=== PATIENT | female | born 1955 | race Caucasian/White ===

== ENCOUNTER → 2021-07-01 15:39 | Outpatient (CLI) | payer MEDICARE, OTHER, SELFPAY ==
[2021-07-01 16:24] LABS: Basophils # 0.1 K/mm3 (0-0.2); Basophils % 0.5 % (0.1-2.0); Eosinophils # 0.1 K/mm3 (0.0-0.4); Eosinophils % 0.5 % (0.1-12.0); Hematocrit 43.3 % (37.0-47.0); Hemoglobin 14.3 g/dL (12.2-16.2); Lymphocytes # 5.2 K/mm3 (0.7-4.5); Lymphocytes % 51.4 % (10-50); Mean Corpuscular Volume 93.8 fl (81-99); Mean Platelet Volume 8.1 fl (7.4-10.4); Monocytes # 4.8 K/mm3 (0.1-1.0); Monocytes % 47.2 % (1.7-9.3); Platelet Count 435 K/mm3 (142-424); Red Blood Count 4.61 M/mm3 (4.20-5.40); Red Cell Distribution Width 14.9 % (11.5-17.5); White Blood Count 10.2 K/mm3 (4.8-10.8)
[2021-07-01 16:25] LABS: MANUAL DIFFERENTIAL MANUAL DIFFERENTIAL (MANUAL DIFF); Neutrophils % 0.3 % (37.0-80.0)
[2021-07-01 16:42] LABS: Chloride 102 mmol/L (98-107); Potassium 4.1 mmoL/L (3.5-5.1); Sodium 142 mmol/L (136-145)
[2021-07-01 16:45] LABS: Alanine Aminotransferase 9 U/L (12-78); Albumin Level 4.3 g/dl (3.5-5.0); Albumin/Globulin Ratio 1.4 (1.1-1.8); Alkaline Phosphatase 151 U/L (38-126); Anion Gap 11.1 mEq/L (5-15); Aspartate Amino Transferase 31 U/L (14-36); Bilirubin,Total 0.3 mg/dl (0.2-1.3); Blood Urea Nitrogen 12 mg/dl (7-17); Carbon Dioxide 33 mmol/L (22.0-30.0); Estimated Glomerular Filt Rate 62 ml/min (>60); GFR (African American) 75 ML/MIN (>60); Globulin 3.1 g/dL (1.3-3.2); Total Protein,Serum 7.4 g/dl (6.3-8.2)
[2021-07-01 16:46] LABS: Calcium 9.7 mg/dl (8.4-10.2); Glucose 91 mg/dl (74-100)
[2021-07-01 18:14] LABS: Eosinophils % 1 % (0-3); Lymphocytes % 24 % (10-50); Monocytes % 18 % (2-9); Neutrophils % 57 % (42-76); Total Cells Counted 100
[2021-07-01 18:15] LABS: Platelet Estimate Normal
== END ==
PROVIDERS: Visit Provider Nurse Practitioner Family
DX: R79.89 Other specified abnormal findings of blood chemistry (principal)
CPT/HCPCS: 36415; 80053; 85007; 85025

== ENCOUNTER 2022-05-19 19:43 | Inpatient (IN) | payer MEDICARE, OTHER, SELFPAY ==
[2022-05-19] VITALS (34 sets, daily range): BP systolic 84–165; BP diastolic 44–101; PULSE 52–100; RESP 15–20; TEMP 36.4–37.1; O2SAT 94–100; BMI 21.1; BMI 19.5
--- NOTE | 2022-05-19 | IR_ITS ---
APPROVED REPORT Patient Location: Emergent Nurse First Aid: NIRMAL Alcantar RT (R) PROCEDURES Selective coronary angiogram Drug-eluting stent deployment to the proximal and mid dominant right coronary Drug-eluting stent deployment to the proximal LAD INDICATION Acute inferior lateral and anterolateral ST elevation myocardial infarction, Coronary artery disease Informed consent was obtained prior to the procedure. COMPLICATIONS NONE Estimated Blood Loss: LESS THAN 10 ML TECHNIQUE One percent lidocaine was used to anesthetize the right groin. The right femoral artery was accessed via the Seldinger technique. A 6 Nepalese sheath was placed in the right femoral artery and a JR4 guide catheter was used to cannulate the right coronary artery. Therapeutic heparin had already been administered and the ACT was 205. An additional 2000 units of heparin was administered intravenously. The guide catheter was placed on the right coronary artery followed by a Choice PT extra-support wire. A 2.5 x 15 mm resolute Davin stent was deployed at 24 vickie reducing the occlusion to 0% restoring NOMAN-3 flow. An additional 2.5 x 15 mm resolute [place] stent was then deployed at 16 vickie reducing the stenosis to 0%. The balloon was brought back between the 2 stents and deployed at 24 vickie further post dilating and measuring the 2 stents. NOMAN-3 flow was present at the end of the procedure with NOMAN 0 flow at the beginning of the procedure. Following this a 6 Nepalese JL 3.5 guide catheter was placed in the left main artery and angiography was performed. There was a calcified proximal to mid LAD lesion which was moderate to severe. Given patient's extremely small weight very small femoral artery as well as highly tortuous aorta and severely kyphotic thoracic spine with difficulty in cannulating the left main artery and right coronary artery it was decided percutaneous revascularization was most warranted in this patient. She had high risk for vascular access with future angiography as well as difficulty cannulating the telida vessels due to patient's extreme vertebral collapse and highly tortuous descending thoracic aorta. Because of this a Choice PT extra-support wire was placed into the LAD and a 2.75 x 18 mm resolute Davin stent was deployed at 18 vickie reducing the stenosis to 0%. NOMAN-3 flow was present before and after the procedure. At the end of procedure the apparatus was removed the sheath was taped into place patient was transferred to postop putting in stable ANGIOGRAPHIC RESULTS The left main artery Normal The left anterior descending artery Has proximal 20% stenoses with an eccentric calcified 70% stenosis. The circumflex artery Nondominant and has proximal 40% stenoses followed by an additional 50 to 60% stenosis in the first obtuse marginal artery with a proximal 60% and mid vessel 60 to 70% stenosis in a moderate-sized second obtuse marginal artery The right coronary artery Is dominant and initially proximally occluded. Following stenting the vessel was widely patent with excellent distal inline flow The ALBERTO ventriculogram reveals Not performed The left ventricular end-diastolic pressure Not measured IMPRESSION Acute inferior and anterolateral ST elevation myocardial infarction Successful stenting of the proximal mid right coronary artery critical disease reduced to 0% with 2 contiguous drug-eluting stents Successful stenting of the proximal to mid LAD severe disease reduced to 0% with 1 drug-eluting stent Persistent moderate to severe stenosis in the first and second obtuse marginal arteries as described above PLAN 1. Brilinta 90 twice daily plus aspirin 81 mg daily 2. OMAR inhibitor's and beta-b
--- NOTE | 2022-05-19 19:39 | ECG_ITS ---
APPROVED REPORT Exam: Resting ECG HR:44 bpm ECG Measurements Heart Rate [address] 183 P 70 QRSd 79 QRS 11 QT 465 T 121 QTc 415 Conclusion Mobitz II AV Block with 2:1 conduction POSSIBLE LEFT ATRIAL ENLARGEMENT [-0.1mV P-WAVE IN V1/V2] ST DEVIATION AND MARKED T-WAVE ABNORMALITY, CONSIDER LATERAL ISCHEMIA [-0.5+ mV T-WAVE IN I/aVL/V5/V6] ABNORMAL ECG UNCONFIRMED REPORT Electronically signed by : Esau Mejia MD 05/20/2022 12:34:06
--- NOTE | 2022-05-19 19:43 | ECG_ITS ---
APPROVED REPORT Exam: Resting ECG HR:66 bpm ECG Measurements Heart Rate 66 AXES QRSd 87 QRS 20 QT 451 T 110 QTc 464 Conclusion Mobitz II AV block- wenckebach pattern ST ELEVATION, PROBABLY EARLY REPOLARIZATION [ST ELEVATION WITH NORMALLY INFLECTED T-WAVE] ST DEVIATION AND MODERATE T-WAVE ABNORMALITY, CONSIDER LATERAL ISCHEMIA [-0.1+ mV T-WAVE IN I/aVL/V5/V6] ABNORMAL ECG UNCONFIRMED REPORT Electronically signed by : Esau Mejia MD 05/20/2022 12:32:32
--- NOTE | 2022-05-19 19:55 | XR_ITS ---
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 TECHNIQUE: Imaging protocol: Radiologic exam of the chest. Views: 1 view. COMPARISON: No relevant prior studies available. FINDINGS: Lungs: Low lung volumes. Pulmonary vasculature grossly normal. No gross pulmonary infiltrates. Question slight interstitial prominence bilaterally, possibly mild interstitial scarring versus mild interstitial edema or interstitial pneumonitis. No consolidations. Pleural spaces: No pleural effusion. No pneumothorax. Heart/Mediastinum: Heart size normal. Vasculature: Moderate aortic ectasia and calcific atherosclerosis. Bones/joints: Osteopenia. Severe rightward convexity thoracic scoliosis, with severe leftward convexity lumbar scoliosis. No acute osseous abnormalities are identified. Other findings: Moderate leftward rotation. IMPRESSION: 1. No definite acute process. 2. Low lung volumes. 3. Question slight interstitial prominence bilaterally, mild interstitial scarring versus mild interstitial edema or interstitial pneumonitis. No consolidations.
--- NOTE | 2022-05-19 20:11 | PC.NURSE ---
spoke with taylor from director of laboratory operations on pt condition
--- NOTE | 2022-05-19 20:23 | HMH.EDGENADL ---
Discharge Plan Disposition Patient Disposition: Admitted As Inpatient Condition: Serious Discharge ED Provider: Brian Walker General Adult HPI General Chief complaint: Chest Pain Stated complaint: CP Time Seen by Provider: 05/19/22 19:43 History of Present Illness HPI narrative: Patient complains of chest pain since 7:15 PM this evening. Initially started in her right breast going into the right shoulder neck. Also now goes into her left shoulder. Denies shortness of breath, vomiting, diaphoresis. Prior history of a heart attack many years ago. She does not think she has any stents. No history of bypass surgery. She is a smoker. Denies hypertension, hyperlipidemia, diabetes. Related Data Allergies Allergy/AdvReac Type Severity Reaction Status Date / Time No Known Allergies Allergy Unverified 07/18/17 15:28 PFSH PFS Social History Smoking Status: Current every day smoker ROS Obtained: Yes Systems reviewed as appropriate & no additional complaints except as documented Constitutional Constitutional: Denies fever(s), Denies headache(s) and Denies weakness ENT Ears, Nose, Mouth, and Throat: Denies headache(s), Denies nasal discharge and Denies sore throat Cardiovascular Cardiovascular: Reports chest pain and Reports radiating jaw, neck or arm pain Respiratory Respiratory: Denies shortness of breath and Denies cough Gastrointestinal Gastrointestingal: Denies abdominal pain, constipation, diarrhea or vomiting Genitourinary Female Genitourinary: Denies difficulty voiding, Denies dysuria and Denies flank pain Musculoskeletal Musculoskeletal: Denies numbness Neurologic Neurologic: Denies headache(s), Denies numbness and Denies weakness Physical Exam General General appearance: alert and in no apparent distress Head Head exam: atraumatic and normocephalic Eye Eye exam: Present normal appearance and EOMI ENT ENT exam: Present mucous membranes moist Neck Neck exam: Present normal inspection and trachea midline Chest Chest inspection: Present normal inspection and symmetric chest wall rise Respiratory Respiratory exam: Present normal lung sounds bilaterally; Absent respiratory distress Cardiovascular Cardiovascular exam: Present regular rate, normal rhythm and normal heart sounds Abdominal Exam Abdominal exam: Present soft and normal bowel sounds; Absent distention, tenderness, guarding, rebound or rigidity Extremities Exam Extremities exam: Present normal inspection Neurological Exam Neurological exam: Present alert and oriented X3 Psychiatric Psychiatric exam: Present normal affect and normal mood Skin Skin exam: Present warm and dry Medical Decision Making Terence Inquiry Pt receiving controlled substance: No Vital Signs: 05/19/22 19:45 Temperature 97.6 F Temperature Source Oral Pulse Rate [Right] 54 L Respiratory Rate 19 Blood Pressure [Right Arm] 123/71 Blood Pressure Mean [Right Arm] 88 Blood Pressure Source [Right Arm] Automatic Cuff 02 Sat by Pulse Oximetry 97 Oxygen Delivery Method Room Air Lab Data Lab results reviewed: Yes I reviewed the patient's lab results. Lab Results 05/19/22 19:43: WBC 11.8 H, RBC 4.85, Hgb 14.8, Hct 45.9, MCV 94.6, MCH 30.5, MCHC 32.2, RDW 14.6, Plt Count 532 H, MPV 7.8, Neut % (Auto) 0.9 L, Lymph % (Auto) 46.7, [place] % (Auto) 50.7 H, Eos % (Auto) 0.6, Baso % (Auto) 1.1, Neut # (Auto) 0.1 L*, Lymph # (Auto) 5.5 H, [place] # (Auto) 6.0 H, Eos # (Auto) 0.1, Baso # (Auto) 0.1 Result diagrams: 05/19/22 19:43 Orders (Tests/Meds): ED MEDICATIONS Generic Name Dose Route Start Last Admin Trade Name Freq PRN Reason Stop Dose Admin Diphenhydramine HCl 50 mg 05/19/22 20:11 Diphenhydramine 50mg/Ml Vial IV 05/19/22 20:12 ONCE ONE Fentanyl Citrate 25 mcg 05/19/22 20:11 Fentanyl 100mcg/2ml Vial IV 05/20/22 20:12 Q3MINP PRN Moderate to Severe Pain Fentanyl Citrate 50 mcg 05/19/22 20:11 Fentanyl 100mcg/2ml Vial
[2022-05-19 20:31] LABS: Basophils # 0.1 K/mm3 (0-0.2); Basophils % 1.1 % (0.1-2.0); Eosinophils # 0.1 K/mm3 (0.0-0.4); Eosinophils % 0.6 % (0.1-12.0); Hematocrit 45.9 % (37.0-47.0); Hemoglobin 14.8 g/dL (12.2-16.2); Lymphocytes # 5.5 K/mm3 (0.7-4.5); Lymphocytes % 46.7 % (10-50); Mean Corpuscular HGB Conc 32.2 g/dL (31.8-35.4); Mean Corpuscular Hemoglobin 30.5 pg (27.0-31.2); Mean Corpuscular Volume 94.6 fl (81-99); Mean Platelet Volume 7.8 fl (7.4-10.4); Monocytes % 50.7 % (1.7-9.3); Neutrophils # 0.1 K/mm3 (1.8-7.8); Platelet Count 532 K/mm3 (142-424); Red Blood Count 4.85 M/mm3 (4.20-5.40); Red Cell Distribution Width 14.6 % (11.5-17.5); White Blood Count 11.8 K/mm3 (4.8-10.8)
[2022-05-19 20:36] LABS: Neutrophils % 0.9 % (37.0-80.0)
[2022-05-19 20:37] LABS: MANUAL DIFFERENTIAL MANUAL DIFFERENTIAL (MANUAL DIFF)
[2022-05-19 20:41] LABS: Chloride 99 mmol/L (98-107); Potassium 3.5 mmoL/L (3.5-5.1); Sodium 144 mmol/L (136-145)
[2022-05-19 20:44] LABS: Blood Urea Nitrogen 20 mg/dl (7-17); Creatinine Clearance Estimated 35 mL/min (50-200); Estimated Glomerular Filt Rate 49 ml/min (>60); GFR (African American) 60 ML/MIN (>60)
[2022-05-19 20:45] LABS: Anion Gap 14.5 mEq/L (5-15); Calcium 9.4 mg/dl (8.4-10.2); Carbon Dioxide 34 mmol/L (22.0-30.0); Glucose 107 mg/dl (74-100)
[2022-05-19 20:57] LABS: Troponin I 0.12 ng/ml (0.00-0.034)
[2022-05-19 21:40] LABS: CATHL Activated Clotting Time 167 SEC (74-125)
--- NOTE | 2022-05-19 21:40 | EXP.HP ---
History of Present Illness *Admission Date: 05/19/22 *Reason for visit:: Chest Pain/STEMI *History of present illness: Ms. Latanya Buck is a [id number]-female with a past medical history that is positive for Chronic Tobacco Abuse and reported history of prior [place] approximately 17 years prior. The patient presented to [facility] secondary to acute right arm pain with radiation into back associated with nausea that started a few hours prior to presentation. In the ER the patient was found to have elevated troponin and ST segment elevation in the lateral leads. A STEMI alert was called and the Residential Mortgage Manager was notified. The patient was seen prior to going to the slabber. The Residential Mortgage Manager reported placing a stent in the proximal dominant coronary artery and proximal LAD. The patient will be placed in the ICU for monitoring overnight. Following reperfusion the patient went into Bradycardia and Asystole. [facility] Medical History (Updated 05/20/22 @ 10:05 by MUNDO Mayer) Cholecystectomy planned Myocardial infarction Tobacco abuse Family History (Updated 05/20/22 @ 02:47 by Alla Patterson RN) Family history of myocardial infarction Brother Social History (Updated 05/20/22 @ 02:47 by Alla Patterson RN) Smoking Status: Current every day smoker alcohol intake: never current occupational status: retired Travel in the last 8 weeks: None housing: house lives independently: Yes marital status: number of children: 3 Review of Systems Review of Systems Review of systems:: pertinent systems reviewed and negative unless documented below Constitutional Constitutional: Reports fatigue Eyes Eyes: Reports system reviewed and no additional complaints, except as documented ENT Ears, Nose, Mouth, and Throat: Reports system reviewed and no additional complaints, except as documented *Cardiovascular Cardiovascular: Reports chest pain, Reports chest pain at rest, Reports chest pain with activity and Reports radiating jaw, neck or arm pain *Respiratory Respiratory: Reports system reviewed and no additional complaints, except as documented *Gastrointestinal Gastrointestinal: Reports nausea *Genitourinary Genitourinary: Reports system reviewed and no additional complaints, except as documented *Musculoskeletal Musculoskeletal: Reports system reviewed and no additional complaints, except as documented and Denies numbness Integumentary/Breasts Skin/Breast: Reports system reviewed and no additional complaints, except as documented *Neurologic Neurologic: Reports system reviewed and no additional complaints, except as documented and Denies numbness Psychiatric Psychiatric: Reports system reviewed and no additional complaints, except as documented Endocrine Endocrine: Reports fatigue Hematologic/Lymphatic Hematologic/Lymphatic: Reports system reviewed and no additional complaints, except as documented Allergic/Immunologic Allergic/Immunologic: Reports system reviewed and no additional complaints, except as documented Meds Home Medications and Allergies Home Medications Medication Instructions Recorded Confirmed Type No Known Home Medications 05/20/22 05/20/22 History New Prescriptions to Start Prescriptions: Allergies Allergy/AdvReac Type Severity Reaction Status Date / Time No Known Allergies Allergy Verified 05/20/22 03:09 Exam Data for Last 24 hours Vital signs and Labs for Last 24 Hours: Temp Pulse Resp BP Pulse Ox 97.6 F 89 18 142/83 H 96 05/19/22 19:45 05/19/22 21:33 05/19/22 21:33 05/19/22 21:33 05/19/22 21:33 Laboratory Results - last 24 hr 05/19/22 19:43: WBC 11.8 H, RBC 4.85, Hgb 14.8, Hct 45.9, MCV 94.6, MCH 30.5, MCHC 32.2, RDW 14.6, Plt Count 532 H, MPV 7.8, Neut % (Auto) 0.9 L, Lymph % (Auto) 46.7, [place] % (Auto) 50.7 H, Eos % (Auto) 0.6, Baso % (Auto) 1.1, Neut # (Auto) 0.1 L*, Lymph # (Auto) 5.5 H, [place] # (Auto) 6.0 H, Eos # (Auto) 0
[2022-05-19 21:42] LABS: CATHL Activated Clotting Time 284 SEC (74-125)
[2022-05-19 21:43] LABS: CATHL Activated Clotting Time 208 SEC (74-125)
--- NOTE | 2022-05-19 22:04 | PC.NURSE ---
Late Entry: @ 1936 Registration brought pt back to ER immediately d/t pt complaint of chest pain. @ 1937 1st EKG- lots of artifact, repeat @1938 2nd EKG more clear and possible ST elevation, brought to MD immediately. @1939 MD is room to eval pt and order another EKG @1942 3rd EKG obtained and MD and paged STEMI alert. House notified @[address] Ramey via stemi phone, new orders for Brillinta 180mg PO and ASA 243mg PO @1947 Dr. Chester s/w Dr. Ramey and asked for cath team to be paged. New order for Heparin 5,000 units IVP. Prepping pt for director of cath lab. Zole pads and monitor placed on pt and she is in a gown. @1999 Pt gave her daughter her gold ring and gold watch and placed on her own hand/wrist per pt request. Hospitalist at bedside and requests that we give Morphine 4mg IVP for pain @2004 Heparin 5,000 units IVP administered and began NS state @[address] chester and this RN have reviewed with pt and daughter director of cath lab procedure, questions answered & daughter signed consent. @2014 SBP 80s, blousing NS @2020 concrete plant laborer called and are ready for pt. S Edilberto Issa RN transported with family to director of cath lab
[2022-05-19 22:26] LABS: Eosinophils % 2 % (0-3); Lymphocytes % 32 % (10-50); Monocytes % 4 % (2-9); Neutrophils % 61 % (42-76); Total Cells Counted 100
[2022-05-19 22:27] LABS: Platelet Estimate Normal; RBC Morphology Normal
--- NOTE | 2022-05-19 22:34 | PC.NURSE ---
PT ARRIVED TO FLOOR VIA STRETCHER AT THIS TIME.
[2022-05-20] VITALS (21 sets, daily range): BP systolic 105–163; BP diastolic 62–83; PULSE 56–90; RESP 15–28; TEMP 36.4–37.2; O2SAT 97–100; BMI 21.2
--- NOTE | 2022-05-20 01:38 | PC.NURSE ---
Since 0100 pt has had periods of bradycardia and dropped beats down in the 20's and once into the teens. Pt is asymptomatic, resting comfortably at this time. BP stable with consistent systolic Bp in the 130's. Hospitalist notified, no new orders at this time. Hospitalist stated that if she sustained with bradycardia to obtain an EKG and notify her. Dr. Ramey also notified at this time, stated to continue to monitor.
[2022-05-20 03:28] LABS: Coronavirus 19, PCR Not Detected (NotDetected); Influenza A, PCR Not Detected (NotDetected); Influenza B, PCR Not Detected (NotDetected)
--- NOTE | 2022-05-20 03:37 | PC.NURSE ---
0300 - during chart check it was noted that patient did not have an admission covid swab done. order placed, swab collected, and sent to lab. pending results.
--- NOTE | 2022-05-20 04:34 | PC.NURSE ---
Pt's daughter requested to provide her contact info along with spouse info. Priya (daughter) [phone] & () Sarath [phone] or [phone] Ernesto (son) [phone] & Charlotte (s/o) Ruby (daughter) [phone]
--- NOTE | 2022-05-20 04:36 | PC.NURSE ---
0410 - pt elevated in the bed. tolerating sitting up well. Pt requesting some coffee and water at this time. Decaf coffee given to daughter to assist patient with.
--- NOTE | 2022-05-20 04:49 | PC.NURSE ---
Pt requesting Tylenol for back pain, does not wish to take PRN Morphine at this time. Notified hospitalist, stated she would put in order for Tylenol.
--- NOTE | 2022-05-20 05:53 | PC.NURSE ---
Lab at bedside for morning labs.
--- NOTE | 2022-05-20 05:55 | PC.NURSE ---
Since arriving to the floor, patient has intermittently rested. Has been medicated per sep with Morphine and Tylenol for back pain d/t having to lay flat for the extended period of time required after her procedure. Pt states she never lays flat and this is why her back is hurting. Pt has been NSR with rates between 70-90 but also continues to have periods of jessie-cardia with coinciding slower radial pulses. Pt has dropped as low as 12bpm on telemetry. MD and hospitalist notified, ordered to damien to monitor. Pt denies any cp, soa, or diaphoresis. Appears to occur more frequently when patient is resting comfortably. BP has remained stable t/o the shift. Dressing to right groin remains intact with no s/s of bleeding or hematoma. Pt was able to be elevated in the bed after 0410, and has tolerated semi fowlers position well. Pt adamant she wants to get up and walk. Has been voiding per bedpan as needed without difficulty. Has had po intake and tolerated well without nausea or vomiting. Denies any soa at this time. Did c/o earlier in the shift that she felt like she might need some oxygen to help her take deep breaths until she could sit up. Oxygen ordered at 2L per NC, and was placed on patient until she was able to sit up. O2 sats have remained in high 90's on room air, and pt is no longer using the oxygen. No further c/o soa. Bilateral radial, femoral, and pedal pulses strong and equal. No further changes at this time. Pt daughter and grandson currently at bedside. Will continue to monitor for any further changes. No acute distress at this time.
--- NOTE | 2022-05-20 05:57 | PC.NURSE ---
0600 Courtesy Round Trash emptied and ice water refilled
[2022-05-20 06:48] LABS: Chloride 105 mmol/L (98-107); Potassium 3.5 mmoL/L (3.5-5.1); Sodium 140 mmol/L (136-145)
[2022-05-20 06:51] LABS: Alanine Aminotransferase 24 U/L (12-78); Albumin Level 3.5 g/dl (3.5-5.0); Albumin/Globulin Ratio 1.1 (1.1-1.8); Alkaline Phosphatase 133 U/L (38-126); Anion Gap 11.5 mEq/L (5-15); Aspartate Amino Transferase 81 U/L (14-36); Bilirubin,Total 0.3 mg/dl (0.2-1.3); Blood Urea Nitrogen 15 mg/dl (7-17); Calcium 8.4 mg/dl (8.4-10.2); Carbon Dioxide 27 mmol/L (22.0-30.0); Cholesterol 223 mg/dl (140-200); Creatinine Clearance Estimated 41 mL/min (50-200); Estimated Glomerular Filt Rate 71 ml/min (>60); GFR (African American) 86 ML/MIN (>60); Globulin 3.1 g/dL (1.3-3.2); Glucose 108 mg/dl (74-100); Phosphorous 3.3 mg/dl (2.5-4.5); Total Protein,Serum 6.6 g/dl (6.3-8.2); Triglycerides 137 mg/dl (30-150); VLDL Cholesterol 27 mg/dL (0-40)
[2022-05-20 06:52] LABS: Chol/HDL Ratio 6.6 (1-3.5); HDL Cholesterol 34 mg/dl (40-60)
[2022-05-20 07:02] LABS: Direct LDL Cholesterol 131.12 mg/dL (100-129)
[2022-05-20 07:09] LABS: Basophils % 0.4 % (0.1-2.0); Eosinophils % 0.3 % (0.1-12.0); Hematocrit 40.4 % (37.0-47.0); Lymphocytes # 3.8 K/mm3 (0.7-4.5); Lymphocytes % 30.8 % (10-50); Mean Corpuscular HGB Conc 31.6 g/dL (31.8-35.4); Mean Corpuscular Hemoglobin 29.4 pg (27.0-31.2); Mean Corpuscular Volume 93.2 fl (81-99); Monocytes # 8.3 K/mm3 (0.1-1.0); Monocytes % 67.7 % (1.7-9.3); Neutrophils # 0.1 K/mm3 (1.8-7.8); Platelet Count 399 K/mm3 (142-424); Red Blood Count 4.33 M/mm3 (4.20-5.40); Red Cell Distribution Width 14.7 % (11.5-17.5); White Blood Count 12.3 K/mm3 (4.8-10.8)
[2022-05-20 07:22] LABS: MANUAL DIFFERENTIAL MANUAL DIFFERENTIAL (MANUAL DIFF); Neutrophils % 0.8 % (37.0-80.0)
[2022-05-20 07:23] LABS: Hemoglobin 12.8 g/dL (12.2-16.2)
[2022-05-20 07:48] LABS: Lymphocytes % 23 % (10-50); Monocytes % 1 % (2-9); Neutrophils % 76 % (42-76); Total Cells Counted 100
[2022-05-20 07:49] LABS: Platelet Estimate Slight Increase; RBC Morphology Normal
--- NOTE | 2022-05-20 09:58 | EXP.CARD.CON ---
History of Present Illness History of Present Illness Consult date: 05/20/22 Requesting physician: Augustine Anthony Consult reason: chest pain Chief complaint: STEMI Additional Medical History:: 1. CAD with prior MD approximately 15-20 years ago, records unavailable. A. STEMI, 05/19/2022, status post MAYA to acute RCA occlusion and MAYA to LAD. 2. Chronic tobacco use 3. Hard of hearing History of present illness: Ms. Latanya Buck is a [id number]-oqu-female with a past medical history that is positive for Chronic Tobacco Abuse and reported history of prior MD approximately 17 years prior. The patient presented to [facility] secondary to acute right arm pain with radiation into back associated with nausea that started a few hours prior to presentation.? In the ER the patient was found to have elevated troponin and ST segment elevation in the lateral leads.? A STEMI alert was called and the Print Line Supervisor was notified.? The patient was seen prior to going to the label coder.? The Print Line Supervisor reported placing a stent in the proximal dominant coronary artery and proximal LAD.? The patient will be placed in the ICU for monitoring overnight.? Following reperfusion the patient went into Bradycardia and Asystole. The above per Chirag Ceron DNP for Hospitalist program 67-year-old white female in bed in no acute distress. Patient's daughter and son-in-law and grandson are present. Patient denies any chest pain but does note some right arm discomfort felt related to muscle discomfort. She is hard of hearing and most communication is through the family members. Events as noted above confirmed. Telemetry continues to show intermittent episodes of severe bradycardia down into the 20 bpm or less range for a couple of seconds before coming back up into the 40s and 50 bpm range. Patient seemingly has no symptoms from this. Patient was taken to cardiac [facility] last evening with urgent placement of stents to the proximal dominant RCA in the proximal to mid LAD. [facility] Medical History (Updated 05/20/22 @ 10:05 by MUNDO Mayer) Cholecystectomy planned Myocardial infarction Tobacco abuse Family History (Updated 05/20/22 @ 02:47 by Alla Patterson, DEBBIE) Family history of myocardial infarction Brother Social History (Updated 05/20/22 @ 02:47 by Alla Patterson RN) Smoking Status: Current every day smoker alcohol intake: never current occupational status: retired Travel in the last 8 weeks: None housing: house lives independently: Yes marital status: number of children: 3 Review of Systems Review of Systems Review of systems:: pertinent systems reviewed and negative unless documented below Constitutional Constitutional: Denies headache(s) and Denies weakness ENT Ears, Nose, Mouth, and Throat: Denies headache(s) *Cardiovascular Cardiovascular: Reports chest pain, Reports chest pain with activity and Reports dyspnea on exertion *Respiratory Respiratory: Reports dyspnea on exertion *Gastrointestinal Gastrointestinal: Denies diarrhea, Reports heartburn and Denies vomiting *Genitourinary Genitourinary: Denies hematuria *Musculoskeletal Musculoskeletal: Denies numbness and Reports radiating pain into limb *Neurologic Neurologic: Reports system reviewed and no additional complaints, except as documented, Denies headache(s), Denies numbness and Denies weakness Exam Data for Last 24 hours Vital signs and Labs for Last 24 Hours: Temp Pulse Resp BP Pulse Ox 98.9 F 70 18 127/66 100 05/20/22 08:00 05/20/22 08:00 05/20/22 08:00 05/20/22 08:00 05/20/22 08:00 Laboratory Results - last 24 hr 05/19/22 19:43: WBC 11.8 H, RBC 4.85, Hgb 14.8, Hct 45.9, MCV 94.6, MCH 30.5, MCHC 32.2, RDW 14.6, Plt Count 532 H, MPV 7.8, Neut % (Auto) 0.9 L, Lymph % (Auto) 46.7, [place] % (Auto) 50.7 H, Eos % (Auto) 0.6, Baso % (Auto) 1.1, Neut # (Auto) 0.1 L*, Lymph # (Auto) 5.5 H, [place] # (Auto) 6.0 H, Eos # (Auto) 0.1, Baso
--- NOTE | 2022-05-20 10:14 | ECG_ITS ---
APPROVED REPORT Exam: Resting ECG HR:63 bpm ECG Measurements Heart Rate 63 AXES AL 175 P 67 QRSd 73 QRS -17 QT 455 T -18 QTc 463 Conclusion SINUS RHYTHM Left atrial abnormality Late R wave progression Left axis deviation Voltage criteria for LVH ABNORMAL ECG UNCONFIRMED REPORT Electronically signed by : Esau Mejia MD 05/21/2022 12:14:48
--- NOTE | 2022-05-20 10:24 | PC.NURSE ---
0851 lab called and reported critical troponin of 18.2., immediately notified angelina reed.
--- NOTE | 2022-05-20 11:00 | PC.NURSE ---
ZOLL pads placed on pt due to HR dropping to the teens (14). Education provided. Pt remains on tele.
--- NOTE | 2022-05-20 11:25 | EXP.ACUTE.PN ---
Subjective *Date: 05/20/22 *Time: 15:36 Interval history: Patient feeling much better this morning. Denies any chest pain or referred pains. Discussed the need for her smoking cessation today. She does not believe that her cigarettes are because of her heart attack. We pleasantly agreed to disagree on that. Denies any nausea, vomiting, diarrhea, shortness of breath. Continues to have labile heart rate on telemetry though she does not feel any different when it changes. Tolerating p.o. intake. Review of systems otherwise negative. Medical Exam Vital signs and Labs for Last 24 Hours: Vital Signs Temp Pulse Pulse Resp BP BP Pulse Ox 05/20/22 08:00 98.9 F 70 18 127/66 100 05/20/22 06:00 61 16 105/62 L 100 05/20/22 05:25 67 16 124/72 97 05/20/22 04:00 70 05/20/22 04:00 98.4 F 05/20/22 04:25 76 15 148/73 H 99 05/20/22 04:01 97 05/20/22 03:25 77 16 120/68 97 05/19/22 23:25 98.6 F 92 H 16 132/87 99 05/19/22 23:10 99 H 16 154/92 H 100 05/19/22 22:55 98.2 F 100 H 16 137/87 100 05/20/22 00:00 99 05/20/22 02:25 67 16 124/68 99 05/20/22 01:25 98.2 F 76 16 135/68 98 05/20/22 00:55 71 16 143/72 H 98 05/20/22 00:25 60 15 136/83 98 05/19/22 23:55 84 15 149/80 H 98 05/19/22 22:40 98.7 F 98 H 16 146/79 H 100 05/19/22 20:20 97.7 F 52 L 16 84/44 L 05/19/22 20:20 56 L 05/20/22 00:00 90 05/19/22 22:45 90 05/20/22 00:00 97.8 F 05/19/22 23:13 17 05/19/22 22:25 90 18 141/69 H 96 05/19/22 22:20 88 18 133/74 95 05/19/22 22:15 90 16 121/80 96 05/19/22 22:10 83 18 139/85 95 05/19/22 22:08 94 H 16 149/75 H 96 05/19/22 22:05 90 18 153/92 H 96 05/19/22 22:02 71 18 143/80 H 96 05/19/22 22:00 90 16 140/86 95 05/19/22 21:55 94 H 16 140/85 95 05/19/22 21:53 75 18 157/91 H 95 05/19/22 21:46 91 H 16 165/91 H 95 05/19/22 21:45 95 H 16 158/94 H 95 05/19/22 21:43 94 H 18 160/87 H 95 05/19/22 21:39 97 H 18 144/72 H 94 L 05/19/22 21:36 93 H 18 125/101 H 96 05/19/22 21:33 89 18 142/83 H 96 05/19/22 21:30 89 16 148/87 H 95 05/19/22 21:27 70 18 140/82 95 05/19/22 21:24 87 16 130/90 95 05/19/22 21:21 91 H 18 143/76 H 95 05/19/22 21:18 92 H 16 142/82 H 95 05/19/22 21:15 87 16 146/77 H 95 05/19/22 21:12 89 16 152/78 H 95 05/19/22 21:09 100 H 16 150/77 H 95 05/19/22 21:22 90 90 20 146/77 H 95 05/19/22 19:45 97.6 F 54 L 19 123/71 97 Intake and Output 05/19/22 05/20/22 05/20/22 23:59 07:59 15:59 Intake Total 90 / 90 Output Total 75 / 75 300 / 300 Balance -75 / -35 -210 / -210 Intake: Intake, Oral Amount 90 / 90 Output: Output, Urine Amount 75 / 75 300 / 300 Other: Number of Voids 1 Number of Unmeasured Voids 1 Weight 45 kg 49.079 kg Patient Weight 05/20/22 23:59 Weight 49.079 kg Laboratory Results - last 24 hr 05/19/22 19:43: WBC 11.8 H, RBC 4.85, Hgb 14.8, Hct 45.9, MCV 94.6, MCH 30.5, MCHC 32.2, RDW 14.6, Plt Count 532 H, MPV 7.8, Neut % (Auto) 0.9 L, Lymph % (Auto) 46.7, Hemphill % (Auto) 50.7 H, Eos % (Auto) 0.6, Baso % (Auto) 1.1, Neut # (Auto) 0.1 L*, Lymph # (Auto) 5.5 H, Hemphill # (Auto) 6.0 H, Eos # (Auto) 0.1, Baso # (Auto) 0.1, Total Counted 100, Neutrophils % (Manual) 61, Lymphocytes % (Manual) 32, Monocytes % (Manual) 4, Eosinophils % (Manual) 2, Basophils % (Manual) 1.0, Differential Comment , Platelet Estimate Normal, RBC Morphology Normal 05/19/22 19:43: Sodium 144, Potassium 3.5, Chloride 99, Carbon Dioxide 34 H, Anion Gap 14.5, BUN 20 H, Creatinine 1.10 H, Estimated Creat Clear 35, Estimated GFR 49 L, Est GFR ( Amer) 60, Glucose 107 H, Calcium 9.4, Troponin I 0.12 H 05/19/22 20:25: Activated Clotting Time 208 H* 05/19/22
[2022-05-21] VITALS (11 sets, daily range): BP systolic 108–139; BP diastolic 65–92; PULSE 64–95; RESP 14–22; TEMP 36.6–37.2; O2SAT 95–100; BMI 19.9
[2022-05-21 07:06] LABS: Creatinine Clearance Estimated 39 mL/min (50-200); Estimated Glomerular Filt Rate 62 ml/min (>60); GFR (African American) 75 ML/MIN (>60)
--- NOTE | 2022-05-21 10:27 | EXP.DC.SUM ---
General Admission date:: 05/19/22 Discharge date: 05/21/22 HPI HPI HPI: Ms. Latanya Buck is a [id number]-female with a past medical history that is positive for Chronic Tobacco Abuse and reported history of prior VA approximately 17 years prior. The patient presented to [facility] secondary to acute right arm pain with radiation into back associated with nausea that started a few hours prior to presentation. In the ER the patient was found to have elevated troponin and ST segment elevation in the lateral leads. A STEMI alert was called and the Museum Specialist was notified. The patient was seen prior to going to the laboratory aide. The Museum Specialist reported placing a stent in the proximal dominant coronary artery and proximal LAD. The patient will be placed in the ICU for monitoring overnight. Following reperfusion the patient went into Bradycardia and Asystole. Hospital Course Hospital Course Hospital Course: 67 year old female with reported history of VA and Chronic Tobacco Abuse presented with acute onset of right sided chest pain with radiation into arm associated with Nausea.? Found to have STEMI.? mechanical laboratory technician activated s/p PCI to proximal right dominant coronary artery and proximal LAD.? Is asymptomatic since heart cath. Denies any chest pain or referred pains. Patient did experience some bradycardia and arrhythmia during the first 12 to 24 hours after heart cath. Bradycardia has resolved. She has been in sinus rhythm for the past 24 hours. Currently asymptomatic. Medically stable for discharge home after observing for 48 hours post cath. We will have close follow-up with cardiology. Problems addressed as follows: STEMI/CAD Arrythmias - Cardiology consulted, appreciate their intervention assistance.? Status post 3 drug-eluting stents, 2 MAYA to RCA and 1 MAYA to LAD. Patient sustained an acute inferior and anterolateral ST elevation VA. Monitored on telemetry for 48 hours. No arrhythmias for the past 24 hours. Did have some early bradycardia and post stenting arrhythmia with reperfusion in the first 12 to 24 hours after heart cath. Started on dual antiplatelet therapy. We will continue aspirin and Brilinta at discharge. Patient also started on statin and Entresto. Plan to continue these medications at discharge. Will need a beta-des for goal-directed therapy, defer to cardiology clinic for initiation. Preliminary read on echocardiogram showing EF of 35%. Formal read still pending. Does not currently meet criteria for LifeVest. Tobacco dependence -Started on nicotine patches. Counseled on the benefits of smoking cessation. Patient using patches during admission but unsure about stopping at this time. Plan to discharge home with close follow-up with cardiology in the next week. Needs to see her primary care in the next 2 weeks. Medically stable at discharge. Exam Data for Last 24 hours Vital signs and Labs for Last 24 Hours: Temp Pulse Resp BP Pulse Ox 98.9 F 75 21 108/65 L 98 05/21/22 08:00 05/21/22 08:00 05/21/22 08:00 05/21/22 08:00 05/21/22 08:00 Laboratory Results - last 24 hr 05/21/22 06:45: Creatinine 0.90, Estimated Creat Clear 39, Estimated GFR 62, Est GFR ( Amer) 75 I & O for Last 24 hours: Intake & Output 05/18/22 05/19/22 05/20/22 05/21/22 23:59 23:59 23:59 23:59 Intake Total 732 / 732 120 / 120 Output Total 75 / 75 900 / 900 750 / 750 Balance -75 / -35 -168 / -168 -630 / -630 Weight 45 kg 49 kg 46.085 kg Constitutional Constitutional: no acute distress *Routine HEENT Exam Head: Present normocephalic and atraumatic Eye: Present EOMI and PERRL ENT: Present mucous membranes moist *Routine Neck Exam Neck: Present supple; Absent JVD or carotid bruit *Routine Respiratory Exam Respiratory: Present decreased breath sounds; Absent rhonchi or wheezes *Routine Cardiovascular Exam Cardiovascular: Present RRR; Absent murmur or bradycardia *Routine Abdominal Ex
--- NOTE | 2022-05-22 08:12 | P.CONPHA_ITS ---
PHA Communications Instructor Discharge Med Real Estate Underwriter: Latanya Buck was discharged after pharmacy hours. Verified patient received appropriate medications: Aspirin Brilinta Atorvastatin Entresto Cardiology holding off on beta des at this time to possibly start as an outpatient. -Glenn Ling, BarneyD
--- NOTE | 2022-05-23 12:33 | CARE MANAGER ---
Attempted to contact patient related to hospital discharge. Phone number is not working. DEBBIE Wiley
== END 2022-05-21 20:09 | disposition home or self-care (01) | DRG 247 ==
LOC: ER 20:32 → CATHLAB 20:32 → 2ND 21:49
PROVIDERS: Nurse Practitioner Family; Admitting Provider Internal Medicine Adolescent Medicine; Emergency Provider Emergency Medicine; PCP Internal Medicine; Referring Provider Internal Medicine; Visit Provider Internal Medicine Adolescent Medicine
DX: I21.09 ST elevation (STEMI) myocardial infarction involving other coronary artery of anterior wall (principal); F17.210 Nicotine dependence, cigarettes, uncomplicated; I25.2 Old myocardial infarction; I25.10 Atherosclerotic heart disease of native coronary artery without angina pectoris; E78.5 Hyperlipidemia, unspecified; I21.19 ST elevation (STEMI) myocardial infarction involving other coronary artery of inferior wall; R00.1 Bradycardia, unspecified
CPT/HCPCS: 36415; 71045; 80048; 80053; 80061; 82565; 83735; 84100; 84484; 85007; 85025; 85347; 92941; 93005; 93306; 93454; 99152; 99153; 99291; C1725; C1769; C1876; C9606; C9803; J1644; J2720; Q9967; U0003; U0005

== ENCOUNTER → 2022-06-08 12:06 | Outpatient (CLI) | payer MEDICARE, OTHER, SELFPAY ==
[2022-06-08 12:38] LABS: Chloride 103 mmol/L (98-107); Sodium 143 mmol/L (136-145)
[2022-06-08 12:39] LABS: Basophils # 0.1 K/mm3 (0-0.2); Basophils % 0.7 % (0.1-2.0); Eosinophils % 0.3 % (0.1-12.0); Hematocrit 42.2 % (37.0-47.0); Hemoglobin 13.3 g/dL (12.2-16.2); Lymphocytes # 5.8 K/mm3 (0.7-4.5); Lymphocytes % 54.6 % (10-50); Mean Corpuscular HGB Conc 31.5 g/dL (31.8-35.4); Mean Corpuscular Hemoglobin 29.8 pg (27.0-31.2); Mean Corpuscular Volume 94.8 fl (81-99); Mean Platelet Volume 7.7 fl (7.4-10.4); Monocytes # 4.7 K/mm3 (0.1-1.0); Monocytes % 43.9 % (1.7-9.3); Neutrophils # 0.1 K/mm3 (1.8-7.8); Platelet Count 638 K/mm3 (142-424); Red Blood Count 4.45 M/mm3 (4.20-5.40); Red Cell Distribution Width 14.3 % (11.5-17.5); White Blood Count 10.6 K/mm3 (4.8-10.8)
[2022-06-08 12:40] LABS: Neutrophils % 0.4 % (37.0-80.0)
[2022-06-08 12:42] LABS: Blood Urea Nitrogen 15 mg/dl (7-17); Calcium 9.5 mg/dl (8.4-10.2); Carbon Dioxide 32 mmol/L (22.0-30.0); Estimated Glomerular Filt Rate 62 ml/min (>60); GFR (African American) 75 ML/MIN (>60); Glucose 86 mg/dl (74-100); MANUAL DIFFERENTIAL MANUAL DIFFERENTIAL (MANUAL DIFF)
[2022-06-08 12:58] LABS: Lymphocytes % 24 % (10-50); Monocytes % 6 % (2-9); Neutrophils % 70 % (42-76); Platelet Estimate Moderate Increase; RBC Morphology Normal; Total Cells Counted 100
== END ==
PROVIDERS: Internal Medicine; PCP Family Medicine; Visit Provider Internal Medicine Adolescent Medicine
DX: I25.10 Atherosclerotic heart disease of native coronary artery without angina pectoris (principal)
CPT/HCPCS: 36415; 80048; 85007; 85025

== ENCOUNTER 2022-06-29 07:53 | Emergency (ER) | payer MEDICARE, OTHER, SELFPAY ==
[2022-06-29 08:07] VITALS: BP 148/83; PULSE 87; RESP 20; TEMP 36.4; O2SAT 96; BMI 17.6
--- NOTE | 2022-06-29 08:20 | CT_ITS ---
FINAL REPORT TECHNIQUE: After the administration of intravenous contrast, axial images were obtained through the abdomen and pelvis by computed tomography. The study was performed with techniques to keep radiation dose as low as reasonably achievable, (ALARA). Individual dose reduction techniques using automated exposure control or adjustment of mA and/or kV according to the patient's size were employed. CLINICAL HISTORY: abdo pain FINDINGS: Abdomen: There is 90 degrees of thoracolumbar scoliosis convex to the left which degrades image quality. There are mild chronic changes in the lung bases. The gallbladder is surgically absent. There is mild intra and extrahepatic ductal dilatation probably related to the prior cholecystectomy. The liver parenchyma is homogeneous. There are calcified granulomas in the spleen. The pancreas, adrenals and kidneys appear unremarkable. There is a 2.6 cm cystic structure in the right upper quadrant that lies posterior to the duodenum and pancreas and anterior to the right kidney. Etiology is unclear. This could represent a pancreatic pseudo cyst, duodenal duplication cyst or renal cyst and is favored to be benign. There is a right anterolateral aortic wall defect with associated stranding in the retroperitoneum. The maximum diameter of the aorta is 3.5 cm at the level of the defect. The constellation of features is concerning for a leaking saccular aneurysm. Pelvis: The appendix is not identified. The urinary bladder is unremarkable. There is no free fluid or adenopathy. IMPRESSION: Findings concerning for leaking saccular aortic aneurysm. These findings were communicated to the emergency room physician at 9:20 a.m.. Reviewed, Interpreted and Dictated by Ryland Zapata MD Transcribed by Manjit Schneider Authenticated and [facility]
--- NOTE | 2022-06-29 08:20 | PC.NURSE ---
at the bedside
[2022-06-29 08:21] LABS: Basophils # 0.1 K/mm3 (0-0.2); Basophils % 0.6 % (0.1-2.0); Eosinophils % 0.1 % (0.1-12.0); Hematocrit 45.6 % (37.0-47.0); Hemoglobin 14.2 g/dL (12.2-16.2); Lymphocytes # 3.9 K/mm3 (0.7-4.5); Lymphocytes % 30.9 % (10-50); Mean Corpuscular HGB Conc 31.2 g/dL (31.8-35.4); Mean Corpuscular Hemoglobin 29.7 pg (27.0-31.2); Mean Corpuscular Volume 95.1 fl (81-99); Mean Platelet Volume 8.3 fl (7.4-10.4); Monocytes # 8.5 K/mm3 (0.1-1.0); Monocytes % 67.4 % (1.7-9.3); Neutrophils # 0.1 K/mm3 (1.8-7.8); Platelet Count 552 K/mm3 (142-424); Red Blood Count 4.79 M/mm3 (4.20-5.40); Red Cell Distribution Width 14.6 % (11.5-17.5); White Blood Count 12.6 K/mm3 (4.8-10.8)
--- NOTE | 2022-06-29 08:21 | HMH.EDGENADL ---
Discharge Plan Disposition Patient Disposition: Xfer Short-Term Hosp Condition: Critical Prescriptions Prescriptions: No Action atorvastatin 40 mg tablet 40 mg PO HS Qty: 90 1RF Entresto 24-26 mg tablet 1 tab PO BID Qty: 180 1RF Brilinta 90 mg tablet 90 mg PO BID Qty: 180 1RF aspirin 81 mg tablet,delayed release (DR/EC) 81 mg PO DAILY Qty: 90 1RF nicotine 21 mg/24 hr Patch 24 Hour 21 mg transdermal DAILY 30 Days Qty: 30 0RF Referrals Follow up/Referrals: Provider,Referral, MD [Referring] - See instructions Clinical Impressions Clinical Impression: Leaking abdominal aortic aneurysm Stand Alone Forms Stand Alone Forms: Transfer Record - ED Instructions Patient Instructions: DI for Acute Abdominal Pain Discharge ED Provider: Brian Walker General Adult HPI General Chief complaint: Abdominal Pain Stated complaint: adb pain, can't hardly walk, pain where heart cath Time Seen by Provider: 06/29/22 08:14 Mode of Arrival: Wheelchair Source of Information: Patient Limitations: No Limitations Description of Symptoms (Recalled from ER Triage Doc. by RN): pt to ed c/o lower abd pain and lower back pain for a few days. pt denies any nausea or vomiting. pt denies urinary symptoms. History of Present Illness HPI narrative: States she has had abdominal pain for over a week. Primarily right-sided lower abdominal pain going across the lower abdomen as well. Also some lower back pain. Poor appetite, but no vomiting, diarrhea, or constipation. No fever. She has chronic urinary frequency which is unchanged. She has had a prior cholecystectomy and tubal ligation. Related Data Previous Rx's Medication Instructions Recorded nicotine 21 mg/24 hr daily 21 mg transdermal DAILY 30 days 05/21/22 transdermal patch #30 ea aspirin 81 mg tablet,delayed 81 mg PO DAILY #90 tabs 06/08/22 release atorvastatin 40 mg tablet 40 mg PO HS #90 tabs 06/08/22 sacubitril 24 mg-valsartan 26 mg 1 tab PO BID #180 tabs 06/08/22 tablet (Entresto) ticagrelor 90 mg tablet (Brilinta) 90 mg PO BID #180 tabs 06/08/22 Allergies Allergy/AdvReac Type Severity Reaction Status Date / Time No Known Allergies Allergy Verified 06/08/22 13:19 [facility] Medical History (Updated 06/29/22 @ 09:29 by Brian Walker MD) Cholecystectomy planned HTN (hypertension) Myocardial infarction Tobacco abuse Surgical History (Updated 06/08/22 @ 13:30 by Leeann Courtney, RN) History of coronary artery stent placement Family History (Updated 05/20/22 @ 02:47 by Alla Patterson, DEBBIE) Brother Family history of myocardial infarction Social History (Updated 05/20/22 @ 02:47 by Alla Patterson, DEBBIE) Smoking Status: Current every day smoker alcohol intake: never current occupational status: retired Travel in the last 8 weeks: None housing: house lives independently: Yes marital status: number of children: 3 ROS Obtained: Yes Systems reviewed as appropriate & no additional complaints except as documented Constitutional Constitutional: Denies fever(s), Denies headache(s), Reports poor appetite and Denies weakness ENT Ears, Nose, Mouth, and Throat: Denies headache(s), Denies nasal discharge and Denies sore throat Cardiovascular Cardiovascular: Denies chest pain Respiratory Respiratory: Denies shortness of breath and Denies cough Gastrointestinal Gastrointestingal: Reports abdominal pain; Denies constipation, diarrhea or vomiting Genitourinary Female Genitourinary: Denies difficulty voiding, Denies dysuria and Denies flank pain Musculoskeletal Musculoskeletal: Reports back pain and Denies numbness Neurologic Neurologic: Denies headache(s), Denies numbness and Denies weakness Physical Exam General General appearance: alert and in no apparent distress Head Head exam: atraumatic and normocephalic Eye Eye exam: Present normal appearance and EOMI ENT ENT exam: Present mucous mem
[2022-06-29 08:23] LABS: MANUAL DIFFERENTIAL MANUAL DIFFERENTIAL (MANUAL DIFF)
[2022-06-29 08:25] LABS: Coronavirus 19, PCR Not Detected (NotDetected); Influenza A, PCR Not Detected (NotDetected); Influenza B, PCR Not Detected (NotDetected)
[2022-06-29 08:26] LABS: Alanine Aminotransferase 24 U/L (12-78); Albumin Level 4.3 g/dl (3.5-5.0); Albumin/Globulin Ratio 1.1 (1.1-1.8); Alkaline Phosphatase 272 U/L (38-126); Anion Gap 10.7 mEq/L (5-15); Aspartate Amino Transferase 37 U/L (14-36); Bilirubin,Total 0.4 mg/dl (0.2-1.3); Blood Urea Nitrogen 16 mg/dl (7-17); Carbon Dioxide 31 mmol/L (22.0-30.0); Chloride 103 mmol/L (98-107); Creatinine Clearance Estimated 34 mL/min (50-200); Estimated Glomerular Filt Rate 55 ml/min (>60); GFR (African American) 67 ML/MIN (>60); Globulin 3.8 g/dL (1.3-3.2); Glucose 105 mg/dl (74-100); Lipase 68 U/L (23-300); Potassium 3.7 mmoL/L (3.5-5.1); Sodium 141 mmol/L (136-145); Total Protein,Serum 8.1 g/dl (6.3-8.2)
[2022-06-29 08:30] VITALS: BP 163/88; PULSE 73; O2SAT 97
[2022-06-29 08:31] LABS: Lymphocytes % 13 % (10-50); Monocytes % 4 % (2-9); Neutrophils % 83 % (42-76); Total Cells Counted 100
[2022-06-29 08:32] LABS: Hypochromasia 1+; Platelet Estimate Marked Increase
[2022-06-29 08:48] LABS: Microscopic, Urine URINE MICROSCOPIC (MICROSCOPIC)
[2022-06-29 08:49] LABS: Appearance,Urine CLEAR (Clear); Bilirubin,Urine Negative (Negative); Blood, Urine TRACE-I (Negative); Color,Urine YELLOW (Yellow); Glucose,Urine (UA) Negative (Negative); Ketones,Urine TRACE (Negative); Leukocyte Esterase,Urine Negative (Negative); Nitrate,Urine Negative (Negative); PH,Urine 5.5 (5.0-8.5); Protein,Urine Negative (Negative); Specific Gravity, Urine 1.025 (1.005-1.030); Urobilinogen,Urine 0.2 EU/dl (0.2)
[2022-06-29 09:01] LABS: Bacteria,Urine 1+ /lpf; RBC,Urine Occasional #/hpf (0-3); WBC,Urine Occasional #/hpf (0-3)
--- NOTE | 2022-06-29 09:22 | PC.NURSE ---
radiology speaking with
--- NOTE | 2022-06-29 09:26 | PC.NURSE ---
explained pt condition to pt and family. Pt requesting to go by ambulance not air transport that is MD recommended at this time.
--- NOTE | 2022-06-29 09:26 | PC.NURSE ---
called [facility] per ER doctor to consult on a ABD aneurysm on pt. and needing to be transferred
--- NOTE | 2022-06-29 09:27 | PC.NURSE ---
FILMS BEING POWER SHARED TO [facility]
--- NOTE | 2022-06-29 09:28 | PC.NURSE ---
MD at the bedside speaking with pt about transport to . pt declines transport via helicopter.
[2022-06-29 09:30] VITALS: BP 178/84; PULSE 74; RESP 20; O2SAT 99
--- NOTE | 2022-06-29 09:40 | PC.NURSE ---
[facility] states they have to decline transfer d/t weather
--- NOTE | 2022-06-29 09:43 | PC.NURSE ---
speaking with [facility]
--- NOTE | 2022-06-29 09:44 | PC.NURSE ---
[facility] called back and speaking with ER Doctor
--- NOTE | 2022-06-29 09:55 | PC.NURSE ---
[facility]ar [facility]s in route to ed
[2022-06-29 10:10] VITALS: BP 150/86; PULSE 85; RESP 20; TEMP 36.5; O2SAT 99
[2022-07-01 08:29] LABS: Peripheral Smear Review Scanned Result
== END 2022-06-29 10:11 | disposition short-term general hospital (02) ==
PROVIDERS: Emergency Provider Emergency Medicine; PCP Family Medicine
DX: I71.30 Abdominal aortic aneurysm, ruptured, unspecified (principal); Z79.82 Long term (current) use of aspirin; Z79.899 Other long term (current) drug therapy; I10 Essential (primary) hypertension; I25.2 Old myocardial infarction; Z72.0 Tobacco use; Z95.818 Presence of other cardiac implants and grafts
CPT/HCPCS: 74177; 80053; 81001; 83690; 85007; 85025; 96374; 96375; 99285; C9803; J2405; Q9967; U0003; U0005

== ENCOUNTER 2023-01-10 23:29 | Emergency (ER) | payer MEDICARE, OTHER, SELFPAY ==
[2023-01-10 23:30] VITALS: BP 191/54; PULSE 95; RESP 16; TEMP 36.5; O2SAT 98; BMI 20.2
[2023-01-10 23:35] VITALS: PULSE 91; O2SAT 99
[2023-01-10 23:45] VITALS: PULSE 83; O2SAT 98
[2023-01-10 23:49] VITALS: BMI 20.2
--- NOTE | 2023-01-10 23:49 | XR_ITS ---
PROCEDURE INFORMATION: Exam: XR Right Ankle Exam date and time: 01/10/2023 11:45 PM Age: 67 years old Clinical indication: Injury or trauma; Fall; Blunt trauma; Ankle; Right TECHNIQUE: Imaging protocol: Radiologic exam of the right ankle. Views: 3 or more views. COMPARISON: No relevant prior studies available. FINDINGS: Bones/joints: Bone island in distal tibial metadiaphysis. Minimal degenerative changes of ankle mortise. Cortices intact. Soft tissues: Normal. Other findings: No effusion. IMPRESSION: No acute radiographic findings identified.
--- NOTE | 2023-01-10 23:49 | XR_ITS ---
PROCEDURE INFORMATION: Exam: XR Right Foot Exam date and time: 01/10/2023 11:47 PM Age: 67 years old Clinical indication: Injury or trauma; Fall; Blunt trauma; Foot; Right TECHNIQUE: Imaging protocol: Radiologic exam of the right foot. Views: 3 or more views. COMPARISON: CR XR ANKLE RT MIN 3V 01/10/2023 11:45 PM FINDINGS: Bones/joints: No acute cortical disruption or fracture line identified. Degenerative changes most pronounced in talonavicular and interphalangeal joints. No erosive changes. Soft tissues: Normal. IMPRESSION: No acute findings.
[2023-01-11] VITALS: PULSE 85; O2SAT 98
[2023-01-11 00:41] VITALS: BP 100/55; PULSE 79; O2SAT 99
[2023-01-11 01:00] VITALS: BP 109/58; PULSE 79; O2SAT 99
--- NOTE | 2023-01-11 01:26 | HMH.EDLOEX ---
Discharge Plan Disposition Patient Disposition: Home, Self-Care Chief Complaint: Extremity Injury, Lower Prescriptions Prescriptions: No Action bupropion HCl [Wellbutrin SR] 150 mg tablet sustained-release 12 hr 150 mg PO BID Qty: 87 0RF Rx Instructions: Take 1 tab daily for 3 days then increase to 1 tab twice daily nicotine 21-14-7 mg/24 hr patch, TD daily, sequential 1 patch transdermal Q24H Qty: 42 0RF aspirin 81 mg tablet,delayed release (DR/EC) 81 mg PO DAILY Qty: 90 3RF atorvastatin 40 mg tablet 40 mg PO HS Qty: 90 3RF Entresto 24-26 mg tablet 1 tab PO BID Qty: 180 3RF Brilinta 90 mg tablet 90 mg PO BID Qty: 180 3RF nicotine 21 mg/24 hr Patch 24 Hour 21 mg transdermal DAILY 30 Days Qty: 30 0RF Referrals Follow up/Referrals: Ebony Stoddard APRN [Primary Care Provider] - See instructions Erika Givens DPM [Staff Physician] - See instructions Clinical Impressions Clinical Impression: Ankle sprain and strain Instructions Patient Instructions: DI for Ankle Sprain Discharge ED Provider: Adonis (ED)Kamran Lower Extremity Injury HPI General Chief Complaint: Extremity Injury, Lower Stated Complaint: Right ankle pain Time Seen by Provider: 01/11/23 01:00 Mode of Arrival: Wheelchair Source of Information: Patient Limitations: No Limitations Description of Symptoms (Recalled from ER Triage Doc. by RN): right foot and ankle pain after fall. pt claimed that she lost her balnce then couldnt get back up for minutes cause of the pain History of Present Illness HPI Narrative: acute injury rt ankle twist type injury w/o fall complaint: ankle injury Onset (ago): hour(s) Injury: Right: ankle and foot Type of Injury: eversion Place: home Severity: moderate Exacerbating factors: weight bearing, movement and palpation Context: walking Associated symptoms: swelling and able to partially bear weight Other symptoms: none Related Data Previous Rx's Medication Instructions Recorded nicotine 21 mg/24 hr daily 21 mg transdermal DAILY 30 days 05/21/22 transdermal patch #30 ea bupropion HCl 150 mg tablet,12 hr 150 mg PO BID #87 tabs 09/07/22 sustained-release (Wellbutrin SR) nicotine 1 patch transdermal Q24H #42 09/07/22 21mg/24hr-14mg/24hr-7mg/24hr daily patches transderm patches,sequentl aspirin 81 mg tablet,delayed 81 mg PO DAILY #90 tabs 12/19/22 release atorvastatin 40 mg tablet 40 mg PO HS #90 tabs 12/19/22 sacubitril 24 mg-valsartan 26 mg 1 tab PO BID #180 tabs 12/19/22 tablet (Entresto) ticagrelor 90 mg tablet (Brilinta) 90 mg PO BID #180 tabs 12/19/22 Allergies Allergy/AdvReac Type Severity Reaction Status Date / Time No Known Allergies Allergy Verified 09/07/22 13:44 [facility] Disclaimer: The information contained in this section may have been updated after the patient was seen, as this information can be updated by other users. Medical History Cholecystectomy planned HTN (hypertension) Myocardial infarction Tobacco abuse Surgical History History of coronary artery stent placement Family History Brother Family history of myocardial infarction Social History Smoking Status: Current every day smoker alcohol intake: never current occupational status: retired Travel in the last 8 weeks: None housing: house lives independently: Yes marital status: number of children: 3 ROS Obtained: Yes All systems reviewed & no additional complaints except as documented Physical Exam General General appearance: alert Head Head exam: normocephalic Eye Eye exam: Present PERRL and EOMI ENT ENT exam: Present normal oropharynx Neck Neck exam: Present trachea midline Respiratory Respiratory exam: Absent respiratory
[2023-01-11 01:30] VITALS: BP 126/57; PULSE 79; O2SAT 100
[2023-01-11 02:05] VITALS: BP 124/73; PULSE 72; RESP 16; TEMP 36.5; O2SAT 99
== END 2023-01-11 02:09 | disposition home or self-care (01) ==
PROVIDERS: Emergency Provider Emergency Medicine; PCP Nurse Practitioner Family
DX: S96.911A Strain of unspecified muscle and tendon at ankle and foot level, right foot, initial encounter (principal); S93.401A Sprain of unspecified ligament of right ankle, initial encounter; W19.XXXA Unspecified fall, initial encounter; I10 Essential (primary) hypertension; I25.2 Old myocardial infarction; F17.200 Nicotine dependence, unspecified, uncomplicated
CPT/HCPCS: 73610; 73630; 99283

== ENCOUNTER 2023-01-26 13:46 | Emergency (ER) | payer MEDICARE, OTHER, SELFPAY ==
[2023-01-26 14:00] VITALS: BP 103/73; PULSE 89; RESP 18; TEMP 36.6; O2SAT 98; BMI 16.9
--- NOTE | 2023-01-26 14:28 | EXP.UTC ---
Discharge Plan Disposition Patient Disposition: Home, Self-Care Condition: Good Prescriptions Prescriptions: No Action bupropion HCl [Wellbutrin SR] 150 mg tablet sustained-release 12 hr 150 mg PO BID Qty: 87 0RF Rx Instructions: Take 1 tab daily for 3 days then increase to 1 tab twice daily nicotine 21-14-7 mg/24 hr patch, TD daily, sequential 1 patch transdermal Q24H Qty: 42 0RF aspirin 81 mg tablet,delayed release (DR/EC) 81 mg PO DAILY Qty: 90 3RF atorvastatin 40 mg tablet 40 mg PO HS Qty: 90 3RF Entresto 24-26 mg tablet 1 tab PO BID Qty: 180 3RF Brilinta 90 mg tablet 90 mg PO BID Qty: 180 3RF nicotine 21 mg/24 hr Patch 24 Hour 21 mg transdermal DAILY 30 Days Qty: 30 0RF Referrals Follow up/Referrals: Antonia Austin MD [Primary Care Provider] - See instructions Activity Restrictions/Add. Instructions Additional Instructions/Restrictions: Make sure to call upon leaving the [facility] to try to get in with your Family Doctor as soon as possible Go to the closest ED immediately if you have abdominal pain, rectal bleeding or bloody stools Follow up as recommended Clinical Impressions Clinical Impression: Hematochezia not due to hemorrhage from anus Instructions Patient Instructions: DI for Rectal Bleeding Discharge ED Provider: Phoebe Ramsey [facility] General Stated complaint: Blood in stool Mode of Arrival: Ambulatory Source of Information: Patient Limitations: No Limitations Time Seen by Provider: 01/26/23 14:28 Description of Symptoms (Recalled from Triage Doc. by RN): PATIENT C/O BLOOD IN STOOL 2 DAYS AGO. DENIES ABDOMINAL PAIN, N/V/D HEENT Symptoms (Recalled from RN notes): No Resp Symptoms (Recalled from RN notes): No Skin Symptoms (Recalled from RN notes): No MS Symptoms (Recalled from RN notes): No Functional Status (Recalled from RN notes): WNL History of Present Illness Provider Complaint: Patient states that she used the bathroom on Monday and noticed that she had some blood on her tissue States it was just a little bit and it was bright red States that she hasnt had any since and she isnt having any abdominal pain States that she wasnt sure if she had something back there but she wanted to have someone look Denies N/V/D Related Data Previous Rx's Medication Instructions Recorded nicotine 21 mg/24 hr daily 21 mg transdermal DAILY 30 days 05/21/22 transdermal patch #30 ea bupropion HCl 150 mg tablet,12 hr 150 mg PO BID #87 tabs 09/07/22 sustained-release (Wellbutrin SR) nicotine 1 patch transdermal Q24H #42 09/07/22 21mg/24hr-14mg/24hr-7mg/24hr daily patches transderm patches,sequentl aspirin 81 mg tablet,delayed 81 mg PO DAILY #90 tabs 12/19/22 release atorvastatin 40 mg tablet 40 mg PO HS #90 tabs 12/19/22 sacubitril 24 mg-valsartan 26 mg 1 tab PO BID #180 tabs 12/19/22 tablet (Entresto) ticagrelor 90 mg tablet (Brilinta) 90 mg PO BID #180 tabs 12/19/22 Allergies Allergy/AdvReac Type Severity Reaction Status Date / Time No Known Allergies Allergy Verified 09/07/22 13:44 Worker's Comp Is this a Worker's Comp case?: No [facility] Disclaimer: The information contained in this section may have been updated after the patient was seen, as this information can be updated by other users. Medical History Cholecystectomy planned HTN (hypertension) Myocardial infarction Tobacco abuse Surgical History History of coronary artery stent placement Family History Brother Family history of myocardial infarction Social History Smoking Status: Current every day smoker alcohol intake: never current occupational status: retired Travel in the last 8 weeks: None housing: house lives independently: Yes marital status: num
[2023-01-26 14:30] VITALS: BP 103/73; PULSE 89; RESP 18; TEMP 36.6; O2SAT 98
== END 2023-01-26 14:45 | disposition home or self-care (01) ==
PROVIDERS: Emergency Provider Nurse Practitioner; PCP Family Medicine
DX: K92.1 Melena (principal); F17.210 Nicotine dependence, cigarettes, uncomplicated; I10 Essential (primary) hypertension
CPT/HCPCS: 99204; 99212; G0463

== ENCOUNTER 2024-04-10 10:54 | Outpatient (CLI) | payer MEDICARE, OTHER, SELFPAY ==
[2024-04-10 11:37] LABS: Albumin Level 4.4 g/dl (3.5-5.0); Chloride 109 mmol/L (98-107)
[2024-04-10 11:38] LABS: Basophils # 0.1 K/mm3 (0-0.2); Basophils % 0.6 % (0.1-2.0); Eosinophils % 0.3 % (0.1-12.0); Hematocrit 47.4 % (37.0-47.0); Hemoglobin 14.1 g/dL (12.2-16.2); Lymphocytes # 4.6 K/mm3 (0.7-4.5); Lymphocytes % 47.2 % (10-50); Mean Corpuscular HGB Conc 29.8 g/dL (31.8-35.4); Mean Corpuscular Hemoglobin 30.1 pg (27.0-31.2); Mean Corpuscular Volume 101.2 fl (81-99); Mean Platelet Volume 9.3 fl (7.4-10.4); Monocytes # 4.9 K/mm3 (0.1-1.0); Monocytes % 51.3 % (1.7-9.3); Neutrophils # 0.1 K/mm3 (1.8-7.8); Platelet Count 420 K/mm3 (142-424); Potassium 4.5 mmoL/L (3.5-5.1); Red Blood Count 4.69 M/mm3 (4.20-5.40); Red Cell Distribution Width 15.1 % (11.5-17.5); Sodium 142 mmol/L (136-145); White Blood Count 9.6 K/mm3 (4.8-10.8)
[2024-04-10 11:40] LABS: Alanine Aminotransferase 19 U/L (12-78); Anion Gap 8.5 mEq/L (5-15); Aspartate Amino Transferase 32 U/L (14-36); Bilirubin,Unconjugated 0.3 mg/dL (0.0-1.1); Blood Urea Nitrogen 19 mg/dl (7-17); Carbon Dioxide 29 mmol/L (22.0-30.0); Estimated Glomerular Filt Rate 55 ml/min (>60); GFR (African American) 66 ML/MIN (>60)
[2024-04-10 11:41] LABS: Alkaline Phosphatase 95 U/L (38-126); Bilirubin,Direct 0.2 mg/dl (0.0-0.4); Bilirubin,Indirect 0.4 mg/dL (0.0-0.9); Bilirubin,Total 0.6 mg/dl (0.2-1.3); Calcium 9.6 mg/dl (8.4-10.2); Chol/HDL Ratio 3.4 (1-3.5); Cholesterol 173 mg/dl (140-200); Glucose 91 mg/dl (74-100); HDL Cholesterol 51 mg/dl (40-60); Total Protein,Serum 7.4 g/dl (6.3-8.2); Triglycerides 102 mg/dl (30-150); VLDL Cholesterol 20 mg/dL (0-40)
[2024-04-10 11:48] LABS: Neutrophils % 0.6 % (37.0-80.0)
[2024-04-10 11:51] LABS: MANUAL DIFFERENTIAL MANUAL DIFFERENTIAL (MANUAL DIFF)
[2024-04-10 11:52] LABS: Direct LDL Cholesterol 79.81 mg/dL (100-129); Hemoglobin A1C 5.6 % (4.0-6.0)
[2024-04-10 12:11] LABS: Thyroid Stimulating Hormone 0.67 uIU/mL (0.465-4.68)
[2024-04-10 12:20] LABS: Lymphocytes % 31 % (10-50); Monocytes % 3 % (2-9); Neutrophils % 66 % (42-76); RBC Morphology Normal; Total Cells Counted 100
[2024-04-10 12:21] LABS: Platelet Estimate Slight Increase
== END 2024-04-10 23:59 | disposition home or self-care (01) ==
LOC: LAB 10:56
PROVIDERS: PCP Nurse Practitioner Family; Visit Provider Nurse Practitioner
DX: I11.9 Hypertensive heart disease without heart failure (principal); E78.5 Hyperlipidemia, unspecified; Z72.0 Tobacco use; I25.118 Atherosclerotic heart disease of native coronary artery with other forms of angina pectoris; R06.09 Other forms of dyspnea; I10 Essential (primary) hypertension; Z95.5 Presence of coronary angioplasty implant and graft; R73.03 Prediabetes; K21.9 Gastro-esophageal reflux disease without esophagitis; R06.00 Dyspnea, unspecified
CPT/HCPCS: 36415; 80048; 80061; 80076; 83036; 84439; 84443; 85007; 85025; 85027

== ENCOUNTER 2024-04-17 13:47 | Outpatient (CLI) | payer MEDICARE, OTHER, SELFPAY ==
[2024-04-17 12:42] LABS: Basophils % 0.3 % (0.1-2.0); Eosinophils % 0.4 % (0.1-12.0); Hematocrit 46.1 % (37.0-47.0); Hemoglobin 14.2 g/dL (12.2-16.2); Lymphocytes # 5.2 K/mm3 (0.7-4.5); Mean Corpuscular HGB Conc 30.8 g/dL (31.8-35.4); Mean Corpuscular Hemoglobin 31.1 pg (27.0-31.2); Mean Platelet Volume 7.5 fl (7.4-10.4); Monocytes # 3.1 K/mm3 (0.1-1.0); Monocytes % 36.8 % (1.7-9.3); Platelet Count 366 K/mm3 (142-424); Red Blood Count 4.57 M/mm3 (4.20-5.40); White Blood Count 8.4 K/mm3 (4.8-10.8)
[2024-04-17 12:58] LABS: Neutrophils % 0.5 % (37.0-80.0)
[2024-04-17 12:59] LABS: MANUAL DIFFERENTIAL MANUAL DIFFERENTIAL (MANUAL DIFF)
[2024-04-17 14:23] LABS: Eosinophils % 1 % (0-3); Lymphocytes % 29 % (10-50); Monocytes % 8 % (2-9); Neutrophils % 62 % (42-76); Total Cells Counted 100
[2024-04-17 14:24] LABS: Anisocytosis 2+; Platelet Estimate Normal
[2024-04-17 14:25] LABS: Macrocytosis 2+; Poikilocytosis 1+; Tear Drop Cells 1+
[2024-04-17 14:26] LABS: Hypochromasia 1+
[2024-04-19 12:26] LABS: Peripheral Smear Review Scanned Result
== END 2024-04-17 23:59 | disposition home or self-care (01) ==
LOC: LAB.DROPOF 13:48
PROVIDERS: PCP Nurse Practitioner Family; Visit Provider Nurse Practitioner Family
DX: R73.03 Prediabetes (principal); D72.9 Disorder of white blood cells, unspecified
CPT/HCPCS: 85007; 85025; 85027

== ENCOUNTER 2024-04-22 13:44 | Outpatient (CLI) | payer MEDICARE, OTHER, SELFPAY ==
[2024-04-22 12:41] LABS: Microscopic, Urine URINE MICROSCOPIC (MICROSCOPIC)
[2024-04-22 13:03] LABS: Appearance,Urine CLEAR (Clear); Bilirubin,Urine Negative (Negative); Blood, Urine TRACE-I (Negative); Color,Urine YELLOW (Yellow); Glucose,Urine (UA) Negative (Negative); Ketones,Urine Negative (Negative); Leukocyte Esterase,Urine Negative (Negative); Nitrate,Urine Negative (Negative); Protein,Urine Negative (Negative); Urobilinogen,Urine 0.2 EU/dl (0.2)
[2024-04-22 14:15] LABS: Bacteria,Urine Trace /lpf; Squamous Epithelial Cell,Urine Occasional #/hpf (0-5); WBC,Urine Occasional #/hpf (0-3)
== END 2024-04-22 23:59 | disposition home or self-care (01) ==
LOC: LAB.DROPOF 13:44
PROVIDERS: PCP Nurse Practitioner Family; Visit Provider Nurse Practitioner Family
DX: R41.0 Disorientation, unspecified (principal); N39.0 Urinary tract infection, site not specified; R35.0 Frequency of micturition
CPT/HCPCS: 81001; 87086

== ENCOUNTER 2024-05-08 10:08 | Outpatient (CLI) | payer MEDICARE, OTHER, SELFPAY ==
--- NOTE | 2024-05-08 10:08 | CT_ITS ---
FINAL REPORT CLINICAL HISTORY: Pelvic pain, right lower quadrant abdominal pain, COMPARISON: 06/29/2022 FINDINGS: CT OF THE ABDOMEN AND PELVIS WITH CONTRAST Axial CT images of the abdomen and pelvis were obtained after the administration of oral and iv contrast. Coronal reformatted images were also obtained and reviewed.This study was performed with techniques to keep radiation doses as low as reasonably achievable (ALARA). Individualized dose reduction techniques using automated exposure control or adjustment of mA and/or kV according to the patient's size were employed. Abdomen: The lung bases are clear. The heart is normal in size. The liver has an unremarkable appearance, without evidence of mass or biliary ductal dilatation. The patient is status postcholecystectomy. The spleen is unremarkable. No adrenal mass is present. The pancreas has an unremarkable appearance. The kidneys are normal, without evidence of mass or hydronephrosis. An aortic stent graft is present and appears patent. There is no free fluid or adenopathy. No mass or abnormal fluid collection is seen. Pelvis: The appendix is normal. A small calcified uterine fibroid is stable. There is a moderate amount of retained stool in the colon. The urinary bladder is unremarkable. No inflammatory process is seen. There is no evidence of mass or adenopathy. There is no evidence of bowel obstruction. 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 There is severe levoscoliosis of the lumbar spine. IMPRESSION: No evidence of acute intra-abdominal process. Reviewed, Interpreted and Dictated by Roc Jon III, MD Transcribed by Thania Shane Authenticated and [facility]
[2024-05-08] MEDS: SODIUM CHLORIDE 0.9% 10ML SYR (RAD ONLY) 10 ML IV (10:32)
[2024-05-08] MEDS: IOPAMIDOL-370 (76%);100ML BOTTLE 75 ML IV (10:32)
== END 2024-05-08 23:59 | disposition home or self-care (01) ==
LOC: RAD 10:08
PROVIDERS: PCP Nurse Practitioner Family; Visit Provider Nurse Practitioner Family
DX: R10.2 Pelvic and perineal pain (principal); R10.31 Right lower quadrant pain; R35.0 Frequency of micturition; D70.9 Neutropenia, unspecified
CPT/HCPCS: 74177; Q9967

== ENCOUNTER 2024-05-16 06:53 | Outpatient (CLI) | payer MEDICARE, OTHER, SELFPAY ==
--- NOTE | 2024-05-16 07:02 | NM_ITS ---
APPROVED REPORT Exam: Nuclear Stress Test Indication: chest pain Patient Location: Outpatient Stress Tech: Marcelina SINGER Tech:NIRMAL Levin RT(R)(N) Ht: 5 ft 0 in Wt: 110 lbs Bra Size: 32a BSA: 1.45 m2 TID: 0.24 History: chest pain Procedure: The patient would not finish the test after first of images, due to back pain and dyspnea. Cardiac Stress and Resting SPECT Images: Cardiac Stress and Resting SPECT images were obtained using technetium 99m Myoview n/a mCi stress and 10.45 mCi at rest. This is an incomplete nondiagnostic study, whereby the patient could not complete the test. Only resting images are available. No stress imaging is performed. Resting imaging demonstrates a medium sized, moderate perfusion defect in the basal to mid inferior and inferolateral LV keys, as well as in the apical LV wall. Determination of reversibility/ischemia vs. infarct cannot be made due to absence of stress imaging. Conclusion: This is an incomplete nondiagnostic study, whereby the patient could not complete the test. Only resting images are available. No stress imaging is performed. Resting imaging demonstrates a medium sized, moderate perfusion defect in the basal to mid inferior and inferolateral LV keys, as well as in the apical LV wall. Determination of reversibility/ischemia vs. infarct cannot be made due to absence of stress imaging. In the setting of nondiagnostic study, evaluation with alternative modalities for ischemia suggested. Electronically signed by : Caitlyn Ruiz MD 05/20/2024 12:31:22
[2024-05-16] MEDS: SODIUM CHLORIDE 0.9% 10ML SYR (RAD ONLY) 10 ML IV (09:30)
[2024-05-16] MEDS: ISOTOPE MYOVIEW (PER STUDY) 1 DOSE IV (09:30)
[2024-05-16] MEDS: REGADENOSON 0.4MG/5ML SYRINGE 0.4 MG IV (09:30)
== END 2024-05-16 23:59 | disposition home or self-care (01) ==
LOC: RAD 06:56
PROVIDERS: PCP Nurse Practitioner Family; Visit Provider Nurse Practitioner
DX: R06.09 Other forms of dyspnea (principal)
CPT/HCPCS: 78451; A9502; J2785

== ENCOUNTER 2024-06-10 16:59 | Emergency (ER) | payer MEDICARE, OTHER, SELFPAY ==
[2024-06-10 17:29] LABS: UTC Strep Screen (Rapid) Negative (Negative)
--- NOTE | 2024-06-10 17:30 | ED_ITS ---
Discharge Plan Disposition Patient Disposition: Home, Self-Care Condition: Good Prescriptions Prescriptions: New amoxicillin 500 mg capsule 500 mg PO BID 7 Days Qty: 14 0RF fluticasone propionate [Flonase Allergy Relief] 50 mcg/actuation spray,suspension 1 spray intranasal DAILY Qty: 16 0RF Rx Instructions: administer into each nostril daily No Action Brilinta 90 mg tablet 90 mg PO BID Qty: 180 3RF atorvastatin 40 mg tablet 40 mg PO HS Qty: 90 3RF Entresto 24-26 mg tablet 1 tab PO BID Qty: 180 3RF aspirin 81 mg tablet,delayed release (DR/EC) 81 mg PO DAILY Qty: 90 3RF Referrals Follow up/Referrals: Ebony Stoddard APRN [Primary Care Provider] - See instructions Activity Restrictions/Add. Instructions Additional Instructions/Restrictions: Take medication as prescribed *Monitor Temp, Over the counter Motrin or Tylenol as directed/as needed Tylenol every 4 hours and Motrin every 6 hours (as long as your family doctor has told you that you can take it) for fever or pain. and straight to ER if unable to lower temp less than 101.0 after medication given *Warm salt water gargles may help to soothe the throat *Throat Lozenges? *Warm fluids like tea with honey may help to soothe the throat? *Sleep elevated *Humidifier/Vaporizer *Flonase 2 sprays in each nostril daily but be aware that it may take 2-3 days before you notice improvement Your throat swab was sent for culture. Those results are typically sent to your primary care. Be sure to follow up in 2-3 days with your family doc tor/primary care physician if no improvement so they can review those result and treat if necessary. If you don?t have a primary care doctor, I recommend you get one but in the mean time, you will have to return to a walk in clinic Follow up IMMEDIATELY for new or worsening symptoms or no Noticeable improvement over the next 48-72 hours. 911 for difficulty breathing or swallowing Clinical Impressions Clinical Impression: Otitis media Instructions Patient Instructions: Amoxicillin, Fluticasone Nasal Dorothy, Sore Throat Print Language Print Language: Czech Discharge ED Provider: Phoebe Ramsey [facility] [place] General Stated complaint: Sneezing,cough,runny nose Time Seen by Provider: 06/10/24 17:30 History of Present Illness Provider Complaint: Patient states that for the last couple of days she hasnt been feeling well having scratchy throat, runny nose, cough and sneezing States that she came in today to get checked worried she may have strep throat or something Related Data Previous Rx's ?Medication ?Instructions ?Recorded aspirin 81 mg tablet,delayed 81 mg PO DAILY #90 tabs 12/19/22 release atorvastatin 40 mg tablet 40 mg PO HS #90 tabs 01/31/24 sacubitril 24 mg-valsartan 26 mg 1 tab PO BID #180 tabs 01/31/24 tablet (Entresto) ticagrelor 90 mg tablet (Brilinta) 90 mg PO BID #180 tabs 01/31/24 amoxicillin 500 mg capsule 500 mg PO BID 7 days #14 caps 06/10/24 fluticasone propionate 50 1 spray intranasal DAILY #16 grams 06/10/24 mcg/actuation nasal spray,suspension (Flonase Allergy Relief) Allergies Allergy/AdvReac Type Severity Reaction Status Date / Time No Known Allergies Allergy Verified 05/01/24 10:16 [facility] Disclaimer: The information contained in this section may have been updated after the patient was seen, as this information can be updated by other users. Medical History Neutrophilia Right ankle injury Hematochezia not due to hemorrhage from anus Leaking abdominal aortic aneurysm Dyslipidemia (high LDL; low HDL) ST elevation (STEMI) myocardial infarction Tobacco abuse CAD (coronary artery disease) Angina pectoris Atypical angina HTN (hypertension) Cholecystectomy planned Tobacco abuse Myocardial infarction Surgical History History of coronary artery stent placement Family History Brother Family history of myocardial infarction Social History Smoking Status: Current every day smoker alcohol intake: never current occupational status: retired Travel in the last 8 weeks: None housing: house lives independently: Yes marital status: number of children: 3 ROS Obtained: Yes All systems reviewed & no additional complaints except as documented and Yes Systems reviewed as appropriate & no additional complaints except as documented Constitutional Constitutional: Reports system reviewed and no additional complaints, except as documented, Reports as per HPI, Denies body ache, Denies chills and Denies headache(s) ENT Ears, Nose, Mouth, and Throat: Reports system reviewed and no additional complaints, except as documented, Reports as per HPI, Reports otalgia (on and off), Denies headache(s), Reports nasal congestion, Reports nasal discharge and Reports sore throat Cardiovascular Cardiovascular: Reports system reviewed and no additional complaints, except as documented and Reports as per HPI Respiratory Respiratory: Reports system reviewed and no additional complaints, except as documented, Reports as per HPI, Denies shortness of breath, Denies chest congestion and Denies cough Gastrointestinal Gastrointestingal: Reports system reviewed and no additional complaints, except as documented and as per HPI Neurologic Neurologic: Denies headache(s) Physical Exam General General appearance: alert and in no apparent distress ENT ENT exam: Present mucous membranes moist Expanded ENT Exam TM/Canal exam: Right TM: erythema and loss of landmarks Nose exam: Present other (clear drainage); Absent sinus tenderness Throat exam: Present tonsillar erythema; Absent tonsillomegaly or tonsillar exudate Respiratory Respiratory exam: Present normal lung sounds bilaterally; Absent respiratory distress or wheezes Cardiovascular Cardiovascular exam: Present regular rate, normal rhythm and normal heart sounds Neurological Exam Neurological exam: Present alert, oriented X3 and normal gait Medical Decision Making Medical Records Screening: Per USPSTF and CDC recommendations, given the prevalence of disease in our region, it is our hospital?s policy to screen for HIV and viral Hepatitis for all patients aged 18 and over and those with ongoing risk factors. Terence Inquiry Pt receiving controlled substance: No Terence was queried for this patient: No Lab Data Lab results reviewed: Yes I reviewed the patient's lab results. Lab Results 06/10/24 17:20: Strep Scn Rapid Clinic Negative Orders (Tests/Meds): ORDERS Category Date Time Status Strep Screen Confirmation Stat Micro 06/10/24 17:20 Received
[2024-06-10 17:33] VITALS: BP 130/69; PULSE 86; RESP 16; TEMP 37.1; O2SAT 98; BMI 17.2
[2024-06-10 17:48] VITALS: BP 130/69; PULSE 86; RESP 16; TEMP 37.1; O2SAT 98
== END 2024-06-10 17:49 | disposition home or self-care (01) ==
PROVIDERS: Emergency Provider Nurse Practitioner; PCP Nurse Practitioner Family
DX: H66.93 Otitis media, unspecified, bilateral (principal)
CPT/HCPCS: 87880; 99213; G0381

== ENCOUNTER 2025-01-15 11:50 | Outpatient (CLI) | payer MEDICARE, OTHER, SELFPAY ==
--- OUTSIDE RECORDS SUMMARY | 2025-01-15 11:53 | XMS_ITS | Clinical Summary ---
Author Organization [facility] Address [address] [place] [address] Care Team Providers Care Medical Director/Head Team Physician Name Role Phone Raffaele Austin MD Primary Care Provider [phone] Allergies No known active allergies Medications EQ Aspirin Adult Low Dose 81 MG EC tablet Take 81 mg by mouth 1 (one) time each day. 06/08/2022 Active atorvastatin (Lipitor) 40 MG tablet Take 40 mg by mouth every night. 06/13/2022 Active Entresto 24-26 MG tablet Take 1 tablet by mouth 2 (two) times a day. 06/13/2022 Active Brilinta 90 MG tablet Take 90 mg by mouth 2 (two) times a day. 06/14/2022 Active Blood Pressure Monitoring (Blood Pressure Cuff) misc Please take your blood pressure daily before your blood pressure medication. Do not take Entresto if blood pressure top number (systolic) is less than 110. 1 each 07/01/2022 Active Active Problems Problem Noted Date Diagnosed Date Leukocytosis 07/01/2022 Overview (07/01/2022): Latest Reference Range & Units 06/29/22 11:10 06/30/22 00:15 07/01/22 04:18 WBC 3.70 - 10.30 10*3/uL 13.43 (H) 12.18 (H) 12.14 (H) (H): Data is abnormally high Likely 2/2 postoperative inflammatory response BC w/ NGTD (x 1 day), afebrile, hemodynamically stable Improving on day of discharge Patient to follow up outpatient with Dr Hayes on 07/11 and to obtain CBC in [facility] on 07/08 CAD (coronary artery disease) 06/30/2022 Overview (07/01/2022): Per medical chart review PMHx Recent STEMI (April 2022) with cardiac stents (unknown location) [place] 17 years ago, unknown if stents present Poor historian 05/20/22 ECHO from outside facility (diagnosis for ECHO listed as STEMI) limited documentation Echocardiographic Findings Left Ventricle Based on the linear dimension and/or 2D volumes, the left ventricle is small in size. There is normal left ventricular myocardial thickness and mass. The left ventricular systolic function is normal.The LVEF is visually estimated at 55 - 60%. See diagram below for wall motion findings. The diastolic function is normal. Right Ventricle Right ventricle size is normal. The right ventricular systolic function is normal. Right ventricular systolic pressure is normal (<35mmHg). The estimated RVSP is 23 mmHg. Left Atrium The left atrial size is normal. Right Atrium The right atrial size is normal. Aortic Valve The aortic valve appears to be trileaflet. There is no valvular regurgitation. There is no hemodynamically significant valvular aortic stenosis. Mitral Valve The mitral valve leaflets are normal in appearance with no evidence of mitral valve prolapse. There is trace mitral regurgitation. There is no mitral stenosis. Tricuspid Valve The tricuspid valve is normal in appearance. There is trace tricuspid regurgitation. There is no tricuspid stenosis. Pulmonic Valve The pulmonic valve is normal in appearance. There is no pulmonic regurgitation. There is no pulmonic stenosis. Great Vessels The aortic root is normal in size. The sinus of Valsalva (aortic root) diameter is 30 mm by leading edge to leading edge method. The pulmonary artery is not well visualized. IVC/SVC The IVC was not well visualized, and an assumed pressure of 8mmHg was used for calculations. Pericardium No pericardial effusion. Home medications include entresto, brilinta, ASA, statin At discharge continue brilinta, ASA, statin, entresto Thoracic scoliosis 06/30/2022 Overview (06/30/2022): Complicates care Follow up PCP GERD (gastroesophageal reflux disease) 2 Overview (06/30/2022): Per medical chart review Previous history of GERD with omeprazole and carafate usage No recent home medications COPD (chronic obstructive pulmonary disease) 07/2021 Overview (06/30/2022): Per chart review No supplemental home oxygen No home medication On room air POD 1 HTN (hypertension) 06/30/2022 Overview (07/01/2022): Per limited medical chart review Please take your blood pressure daily in the morning prior to medication. Record your blood pressure and your heart rate. Bring this list with you to your follow up appointment. Please call if you have any concerns or questions. Continue home medication Entresto and follow up PCP Do not take home Entresto if SBP <110 Postoperative pain 06/30/2022 Overview (06/30/2022): Continue oxycodone 5mg q6h PRN Scheduled acetaminophen 1000 mg q8h Follow up PCP Aneurysm of infrarenal abdominal aorta 2 Overview (06/29/2022): Added automatically from request for surgery [id number] Aneurysm of infrarenal abdom inal aorta, unspecified whether ruptured 06/29/2022 Overview (07/01/2022): Presented to [facility] 06/29/22 as a transfer from [facility] r/t infrarenal AAA evaluation 06/29/22: s/p 1. Ultrasound guided access of BL MANIFOLD OPERATOR 2. Infrarenal EVAR placement with 25 AFX 3. Balloon angioplasty L BAILEY 4. Balloon angioplasty R BAILEY, EIA 5. Percutaneous closure BL groins Continue home medications ASA 81 mg daily, Brilinta, Statin SBP Goal <160 Continue home entresto Follow up with Dr Hayes in 1 month with CTA C/A/P with runoff (patient verbalized history of blockage in leg. Family History Medical History Relation Name Comments COPD Father Brain Aneurysm Mother Relation Name Status Comments Father Mother Social History Tobacco Use Types Packs/Day Years Used Date Smoking Tobacco: Former Cigarettes 1 40 1 08/29/1981 - 06/29/2022 Smokeless Tobacco: Never Tobacco Cessation:Counseling Given: Not Answered Alcohol Use Standard Drinks/Week Comments Never 0 (1 standard drink = 0.6 oz pur e alcohol) PHQ-2 Answer Date Recorded Patient Health Questionnaire-2 Score 0 11/21/2022 CAGE ASSESSMENT Answer Date Recorded Cage unable to access Not on file 07/01/2022 Cage max number of drinks Not on file 2021 Cage Beverages a week Not on file 07/01/2022 Have you ever felt you should CUT down on your d rinking? 0 07/01/2022 Have you been ANNOYED by people criticizing your drinking? 0 07/01/2022 Have you felt GUILTY about your drinking? 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 0 07/01/2022 CAGE Questionnaire Score 0 022 PHQ-2A Answer Date Recorded Patient Health Questionnaire-2 Score 0 11/21/2022 Comments Unknown Sex and Gender Information Value Date Recorded Sex Assigned at Not on file Legal Sex Female 7:36 PM EDT Gender Identity Not on file Sexual Orientation Not on file Last Filed Vital Signs Vital Sign Reading Time Taken Comments Blood Pressure 124/69 11/21/2022 4:42 PM EDT Pulse 88 11/21/2022 4:42 PM EDT Temperature 35.8 C (96.4 F) 11/21/2022 4:42 PM EDT Respiratory Rate 16 07/11/2022 2:29 PM EST Oxygen Saturation 97% 07/01/2022 12:17 PM EST Inhaled Oxygen Concentration - - Weight 43 kg (94 lb 11.2 oz) 11/21/2022 4:42 PM EDT Height 152.4 cm (5') 11/21/2022 4:42 PM EDT Body Mass Index 18.49 11/21/2022 4:42 PM EDT Plan of Treatment Health Maintenance Due Date Last Done Comments Y-Bone Density Scan 1955 [facility]-Medicare Annual Wellness (AWV) 1955 [facility]-Infant/Child/Adol SDOH Screenings 1955 [facility]- SDOH Screenings 1971 [facility]-Adult SDOH Screenings 1971 [facility]-DTaP,Tdap,and Td Vaccine s (1 - Tdap) 1972 CT Colonography 1998 Colonoscopy 1998 FIT-DNA 1998 FIT 1998 FOBT 1998 Sigmoidoscopy 1998 [facility]-Colorectal Cancer Screening 1998 [facility]-Breast Cancer Screening 2003 [facility]-Pneumococcal Vaccine: 50 + Years (1 of 1 - PCV) 2003 [facility]-Zoster Vaccines (1 of 2) 2003 [facility]-Lung Cancer Screening 07/08/2023 07/08/2022 [facility]-Depression Screening 11/22/2023 11/21/2022 [id number] Vaccine (3 - 2023- season) 2024 04/30/2021, 04/10/2021 [facility]-Influenza Vaccine (Seaso n Ended) 2025 [facility]-RSV Vaccine: 60+ Years o r (1 - 1-dose 75+ series) 2028 [facility]-Hepatitis C Screening Completed 06/29/2022 HPV Vaccines Aged Out No longer eligi ble based on patient's age to complete this topic [facility]-HIB Vaccines Aged Out No longer e ligible based on patient's age to complete this topic [facility]-Hepatitis A Vaccines Aged Out No longer eligible based on patient's age to complete this topic [facility]-IPV Vaccines Aged Out No longer e ligible based on patient's age to complete this topic [facility]-Rotavirus Vaccines Aged Out No lo nger eligible based on patient's age to complete this topic Medical Devices Implanted Type Area Die Operator Device Identifier Shelf Expiration Date Model / Serial / Lot Stent Endologix Chg Bifurc 25mm X 80mm X 16mm - [id number] Implanted:Qty: 1 on 06/29/2022 by Eli Hayes MD at [facility] [id number] 04/13/2023 [id number] / [id number] / [id number] Procedures Procedure Name Priority Date/Time Associated Diagnosis Comments CT ANGIO CHEST Routine 07/08/2022 11:43 AM EST Aneurysm of infrarenal abdominal aorta, unspecified whether ruptured (CMS/HCC) HEPATITIS C ANTIBODY - ED W/REFLEX TO HCV QUANT PCR STAT 06/29/2022 11:10 AM EST from Last 3 Months or Most Recently Relevant to Health Maintenance Results * CT Angio Chest (07/08/2022 11:43 AM EST) Anatomical Region Laterality Modality Chest Computed Tomogra phy Impressions 07/08/2022 12:15 PM EST No thoracic aortic aneurysm. Endovascular repair of an infrarenal aortic aneurysm. Stable aneurysm sac. No endoleak on arterial phase imaging. 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 Three-vessel bilateral lower extremity runoff. CRITICAL RESULT: No COMMUNICATION: Per this report Dictated by Esau Lopez MD on 07/08/2022 11:59 AM Signed by Esau Lopez MD on 07/08/2022 12:15 PM Narrative 07/08/2022 12:15 PM EST Exam/Procedure: CT ANGIO ABDOMEN PELVIS W RUNOFF ordered by ELI HAYES, [id number] CLINICAL INDICATION: Claudication or leg ischemia, prior revasc TECHNIQUE: A CT angiogram of the chest, abdomen, and pelvis with runoff was performed in arterial phase. A total of 150 mL of Omnipaque 350 was administered during the examination. Advanced 3D workstation manipulation and review of the data set was performed by the interpreting physician to further define anatomy and possible pathology. Images of areas of interest were created utilizing various techniques. These images were saved and transferred to PACS if significant. TOTAL DLP (Dose-Length Product): 2159 mGy*cm Please note: The reported value represents the total of one or more individual components during the CT acquisition on this date and at this time, and as such, the same value may appear in more than one CT report depending on the interpreting/reporting physicians. COMPARISON: CT abdomen dated June 29, 2022 VASCULAR FINDINGS: The thoracic aorta is normal in caliber but with severe descending thoracic aortic tortuosity in association with thoracolumbar scoliosis. No thoracic aortic dissection. The aortic valve appears trileaflet with standard origins of the coronary arteries. Coronary artery calcification noted. The coronary arteries are otherwise not well evaluated. The neck great vessels are proximally patent. There is been interval endovascular repair of a previously noted infrarenal abdominal aortic aneurysm with stent extending from the infrarenal aorta and into the bilateral common iliac arteries. The stent graft is patent. The aneurysm sac is stable within measurement error from comparison. No discrete arterial phase endoleak. Venous phase imaging not obtained. Severe atherosclerosis, probably noncalcified in the perivisceral aorta is unchanged. The celiac axis is patent with mild origin stenosis. The SMA is patent with mild proximal stenosis. Right renal artery is patent. The left renal artery is patent. The XANDER is occluded at its origin with reconstitution. Just distal to the right iliac stent, there is a dissection and thrombus extending through the right external iliac artery resulting in mild luminal narrowing. This luminal narrowing remains improved from comparison which demonstrated severe atherosclerosis diffusely. There is a severe origin stenosis of the right hypogastric artery with multiple more distal moderate stenoses. The left hypogastric artery is occluded at its origin with reconstitution of the anterior and posterior divisions distally. The left external iliac artery is patent with distal short segment dissection noted with some adherent thrombus that does not result in a flow- limiting stenosis. Right common femoral artery is patent. The profunda is patent. The right superficial femoral artery is patent. The popliteal artery is patent. The tibioperoneal trunk is patent. The anterior tibial artery, peroneal, and posterior tibial arteries are patent. The dorsalis pedis is patent. The left common femoral artery is patent with mild luminal narrowing. The profunda is patent. The superficial femoral artery is patent. The popliteal artery is patent. Early branching of the anterior tibial artery incidentally noted which is patent. The tibioperoneal trunk, peroneal, and posterior tibial arteries are patent. The dorsalis pedis is patent. ANCILLARY FINDINGS: No significant retroperitoneal hematoma. Several small retroperitoneal lymph nodes appear slightly improved. Procedure Note Esau Lopez MD - 07/08/2022 Exam/Procedure: CT ANGIO ABDOMEN PELVIS W RUNOFF ordered by ELI FLOYD, [id number] CLINICAL INDICATION: Claudication or leg ischemia, prior revasc TECHNIQUE: A CT angiogram of the chest, abdomen, and pelvis with runoff was performedin arterial phase. A total of 150 mL of Omnipaque 350 was administeredduring the examination. Advanced 3D workstation manipulation and reviewof the data set was performed by the interpreting physician to furtherdefine anatomy and possible pathology. Images of areas of interest werecreated utilizing various techniques. These images were saved andtransferred to PACS if significant. TOTAL DLP (Dose-Length Product): 2159 mGy*cm Please note: The reportedvalue represents the total of one or more individual components during theCT acquisition on this date and at this time, and as such, the same valuemay appear in more than one CT report depending on theinterpreting/reporting physicians. COMPARISON: CT abdomen dated June 29, 2022 VASCULAR FINDINGS: The thoracic aorta is normal in caliber but with severe descendingthoracic aortic tortuosity in association with thoracolumbar scoliosis. Nothoracic aortic dissection. The aortic valve appears trileaflet withstandard origins of the coronary arteries. Coronary artery calcificationnoted. The coronary arteries are otherwise not well evaluated. The neckgreat vessels are proximally patent. There is been interval endovascular repair of a previously notedinfrarenal abdominal aortic aneurysm with stent extending from theinfrarenal aorta and into the bilateral common iliac arteries. The stentgraft is patent. The aneurysm sac is stable within measurement error fromcomparison. No discrete arterial phase endoleak. Venous phase imaging notobtained. Severe atherosclerosis, probably noncalcified in the perivisceral aorta isunchanged. The celiac axis is patent with mild origin stenosis. The SMA ispatent with mild proximal stenosis. Right renal artery is patent. The leftrenal artery is patent. The XANDER is occluded at its origin withreconstitution. Just distal to the right iliac stent, there is a dissection and thrombusextending through the right external iliac artery resulting in mildluminal narrowing. This luminal narrowing remains improved from comparisonwhich demonstrated severe atherosclerosis diffusely. There is a severeorigin stenosis of the right hypogastric artery with multiple more distalmoderate stenoses. The left hypogastric artery is occluded at its originwith reconstitution of the anterior and posterior divisions distally. Theleft external iliac artery is patent with distal short segment dissectionnoted with some adherent thrombus that does not result in a flow-limitingstenosis. Right common femoral artery is patent. The profunda is patent. The rightsuperficial femoral artery is patent. The popliteal artery is patent. Thetibioperoneal trunk is patent. The anterior tibial artery, peroneal, andposterior tibial arteries are patent. The dorsalis pedis is patent. The left common femoral artery is patent with mild luminal narrowing. Theprofunda is patent. The superficial femoral artery is patent. Thepopliteal artery is patent. Early branching of the anterior tibial arteryincidentally noted which is patent. The tibioperoneal trunk, peroneal, andposterior tibial arteries are patent. The dorsalis pedis is patent. ANCILLARY FINDINGS: No significant retroperitoneal hematoma. Several small retroperitoneallymph nodes appear slightly improved. IMPRESSION: No thoracic aortic aneurysm. Endovascular repair of an infrarenal aortic aneurysm. Stable aneurysm sac.No endoleak on arterial phase imaging. Bilateral external iliac artery dissections consistent with recentinterventions with improvement in previously noted degree of stenosis. Three-vessel bilateral lower extremity runoff. CRITICAL RESULT: No COMMUNICATION: Per this report Dictated by Esau Lopez MD on 07/08/2022 11:59 AM Signed by Esau Lopez MD on 07/08/2022 12:15 PM Eli Hayes MD IMG CT PROCEDURES Final Result * Hepatitis C Antibody - ED (06/29/2022 11:10 AM EST) Hepatitis C Antibody Negative Negative 06/29/2022 1:06 PM EST [facility] Blood Venous blood specimen / Unknown Venipuncture / Unknown 06/29/2022 11:10 AM EST 06/29/2022 11:57 AM EST Andrey Phelan MD LAB BLOOD ORDERABLES Final Re sult [facility] [address] [place] [id number] from Last 3 Months or Most Recently Relevant to Health Maintenance Insurance AETNA [facility] MEDICAID AETNA MEDICARE Advance Directives * Full Code (Latest Code Status on File) Date Activated Date Inactivated Comments 06/29/2022 3:28 PM 07/01/2022 5:13 PM Question Answer Comments Patient has decision-making capacity? Yes * Full Code Date Activated Date Inactivated Comments 06/29/2022 12:09 PM 06/29/2022 3:28 PM Question Answer Comments Patient has decision-making capacity? Yes Care Teams Medical Director/Head Team Physician Relationship Specialty Start Date End Date Raffaele Austin MD [address] [place] [address] #1 #1 NATASHA Govea [id number] PCP - General 06/30/21
--- NOTE | 2025-01-15 11:54 | XR_ITS ---
FINAL REPORT CLINICAL HISTORY: left shoulder pain, decreased ROM FINDINGS: LEFT SHOULDER Three views were obtained. There is no fracture or dislocation. There are minimal hypertrophic changes at the glenohumeral joint. No soft tissue abnormality is identified. IMPRESSION: No acute process. Reviewed, Interpreted and Dictated by Ryland Zapata MD Transcribed by Skylar You Authenticated and [facility]
--- NOTE | 2025-01-15 11:54 | XR_ITS ---
FINAL REPORT CLINICAL HISTORY: Right shoulder pain, decreased ROM FINDINGS: RIGHT SHOULDER Three views were obtained. There is no fracture or dislocation. The joint spaces appear normal. No soft tissue abnormality is identified. There is marked thoracic scoliosis convex to the right measuring 90 degrees. IMPRESSION: No acute process. Reviewed, Interpreted and Dictated by Ryland Zapata MD Transcribed by Skylar You Authenticated and [facility]
[2025-01-15 12:51] LABS: Basophils % 0.3 % (0.1-2.0); Eosinophils % 0.2 % (0.1-12.0); Hematocrit 40.8 % (37.0-47.0); Immature Granulocytes # 0.04 10^3uL; Immature Granulocytes % 0.4 %; Lymphocytes # 2.2 K/mm3 (0.7-4.5); Mean Corpuscular HGB Conc 31.9 g/dL (31.8-35.4); Mean Corpuscular Hemoglobin 30.2 pg (27.0-31.2); Mean Corpuscular Volume 94.7 fl (81-99); Monocytes # 0.5 K/mm3 (0.1-1.0); Monocytes % 5.4 % (1.7-9.3); Neutrophils # 6.8 K/mm3 (1.8-7.8); Neutrophils % 70.7 % (37.0-80.0); Nucleated Red Blood Cells # 0 10^3/uL; Nucleated Red Blood Cells % 0 %; Platelet Count 422 K/mm3 (142-424); Red Blood Count 4.31 M/mm3 (4.20-5.40); Red Cell Distribution Width 15.7 % (11.5-17.5); Red Cell Distribution Width-SD 54.7 fL; White Blood Count 9.6 K/mm3 (4.8-10.8)
[2025-01-15 13:11] LABS: Hemoglobin A1C 5.4 % (4.0-6.0)
[2025-01-15 13:23] LABS: Albumin Level 4.1 g/dl (3.5-5.0); Chloride 106 mmol/L (98-107); Sodium 139 mmol/L (136-145)
[2025-01-15 13:24] LABS: Potassium 4.8 mmoL/L (3.5-5.1)
[2025-01-15 13:26] LABS: Alanine Aminotransferase 18 U/L (12-78); Albumin/Globulin Ratio 1.3 (1.1-1.8); Alkaline Phosphatase 127 U/L (38-126); Amylase 84 U/L (30-110); Anion Gap 7.8 mEq/L (5-15); Aspartate Amino Transferase 31 U/L (14-36); Bilirubin,Total 0.4 mg/dl (0.2-1.3); Blood Urea Nitrogen 21 mg/dl (7-17); Calcium 9.8 mg/dl (8.4-10.2); Carbon Dioxide 30 mmol/L (22.0-30.0); Estimated Glomerular Filt Rate 55 ml/min (>60); GFR (African American) 66 ML/MIN (>60); Globulin 3.1 g/dL (1.3-3.2); Glucose 118 mg/dl (74-100); HDL Cholesterol 45 mg/dl (40-60); Lipase 107 U/L (23-300); Total Protein,Serum 7.2 g/dl (6.3-8.2)
[2025-01-15 13:27] LABS: Chol/HDL Ratio 3.5 (1-3.5); Cholesterol 159 mg/dl (140-200); Triglycerides 101 mg/dl (30-150); VLDL Cholesterol 20 mg/dL (0-40)
[2025-01-15 13:38] LABS: Direct LDL Cholesterol 73.77 mg/dL (100-129)
[2025-01-15 13:58] LABS: Thyroid Stimulating Hormone 0.95 uIU/mL (0.465-4.68)
[2025-01-15 14:02] LABS: Ferritin 133 ng/ml (11.1-264)
[2025-01-15 15:04] LABS: Vitamin B12 343 pg/mL (239-931)
[2025-01-16 15:56] LABS: H. pylori Breath Test Negative (Negative)
== END 2025-01-15 23:59 | disposition home or self-care (01) ==
PROVIDERS: PCP Nurse Practitioner Family; Visit Provider Nurse Practitioner Family
DX: M41.84 Other forms of scoliosis, thoracic region (principal); M25.511 Pain in right shoulder; M25.512 Pain in left shoulder; I10 Essential (primary) hypertension; R19.7 Diarrhea, unspecified; R10.10 Upper abdominal pain, unspecified; R73.03 Prediabetes; R63.4 Abnormal weight loss
CPT/HCPCS: 36415; 73030; 80053; 80061; 82150; 82607; 82728; 83013; 83036; 83690; 84443; 85025

== ENCOUNTER 2025-01-19 16:22 | Outpatient (CLI) | payer MEDICARE, OTHER, SELFPAY ==
--- OUTSIDE RECORDS SUMMARY | 2025-01-19 16:24 | XMS_ITS | Clinical Summary ---
Author Organization [facility] Address [address] [place] [address] Care Team Providers Care Top Ironer Name Role Phone Raffaele Austin MD Primary Care Provider [phone] Allergies No known active allergies Medications EQ [...] on 07/11 and to obtain CBC in [facility] on 07/08 CAD (coronary artery disease) 06/30/2022 Overview (07/01/2022): Per medical chart review PMHx Recent STEMI (April 2022) with cardiac stents (unknown location) [place] 17 years ago, unknown if stents present [...] (06/29/2022): Added automatically from request for surgery [id number] Aneurysm of infrarenal abdom inal aorta, unspecified whether ruptured 06/29/2022 Overview (07/01/2022): Presented to [facility] 06/29/22 as a transfer from [facility] r/t infrarenal AAA evaluation 06/29/22: s/p 1. Ultrasound guided access of BL FITTER / WELDER 2. 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) to steady your nerves or to get [...] Last Done Comments Y-Bone Density Scan 1955 [facility]-Medicare Annual Wellness (AWV) 1955 [facility]-Infant/Child/Adol SDOH Screenings [...] Screening 07/08/2023 07/08/2022 [facility]-Depression Screening 11/22/2023 11/21/2022 [id number] Vaccine (3 - 2023- season) 2024 04/30/2021, [...] this topic Medical Devices Implanted Type Area Accounting Technician Device Identifier Shelf Expiration Date Model / Serial / Lot Stent [employer]ix Chg Bifurc 25mm X 80mm X 16mm - [id number] Implanted:Qty: 1 on 06/29/2022 by Eli Hayes MD at [facility] [id number] 04/13/2023 [id number] / [id number] / [id number] Procedures Procedure Name Priority Date/Time Associated Diagnosis [...] PELVIS W RUNOFF ordered by ELI HAYES, [id number] CLINICAL INDICATION: Claudication or leg ischemia, prior [...] PELVIS W RUNOFF ordered by ELI FLOYD, [id number] CLINICAL INDICATION: Claudication or leg ischemia, prior [...] Antibody Negative Negative 06/29/2022 1:06 PM EST [facility] Blood Venous blood specimen / Unknown Venipuncture / Unknown 06/29/2022 11:10 AM EST 06/29/2022 11:57 AM EST Andrey Phelan MD LAB BLOOD ORDERABLES Final Re sult [facility] [address] [place] [id number] from Last 3 Months or Most Recently Relevant to Health Maintenance Insurance AETNA [facility] MEDICAID AETNA MEDICARE Advance Directives * Full Code (Latest Code Status on File) Date Activated Date Inactivated Comments 06/29/2022 3:28 PM 07/01/2022 5:13 PM Question Answer Comments Patient has decision-making capacity? Yes * Full Code Date Activated Date Inactivated Comments 06/29/2022 12:09 PM 06/29/2022 3:28 PM Question Answer Comments Patient has decision-making capacity? Yes Care Teams Top Ironer Relationship Specialty Start Date End Date Raffaele Austin MD [address] [place] [address] #1 #1 NATASHA Govea [id number] PCP - General 06/30/21
--- OUTSIDE RECORDS SUMMARY | 2025-01-19 16:24 | XMS_ITS ---
Laboratory report Created on: January 18, 2025 PASCALE TELLEZ : 1955 Sex: Female Author Organization Unknown PROBLEMS Problems List Code Description RESULTS Laboratory Orders Date Order Code Test 2025-01-15 300759 H PYLORI BREATH TEST Laboratory Results Date LOINC Test Value Unit Reference Range Interpre tation 2025-01-15 58154-9 H PYLORI BREATH TEST N NEGATIVE
[2025-01-19 16:30] LABS: Adenovirus F 40/41, stool Not Detected (NotDetected); Astrovirus Not Detected (NotDetected); Campylobacter Not Detected (NotDetected); Clostridium Difficile A/B, PCR Not Detected (NotDetected); Cryptosporidium Not Detected (NotDetected); Cyclospora Cayetanesis Not Detected (NotDetected); Entamoeba histolytica Not Detected (NotDetected); Enteroaggregative E coli Not Detected (NotDetected); Enteropathogenic E coli Not Detected (NotDetected); Enterotoxigenic E coli Not Detected (NotDetected); Giardia lamblia Not Detected (NotDetected); Microscopic, Urine URINE MICROSCOPIC (MICROSCOPIC); Norovirus Not Detected (NotDetected); Plesimonas Shigalloides, PCR Not Detected (NotDetected); Rotavirus A Not Detected (NotDetected); Salmonella, PCR Not Detected (NotDetected); Sapovirus Not Detected (NotDetected); Shiga-like toxin E coli Not Detected (NotDetected); Shigella Enterovasive E coli Not Detected (NotDetected); Vibrio Cholerae Not Detected (NotDetected); Vibrio, PCR Not Detected (NotDetected); Yersinia Entercolitica, PCR Not Detected (NotDetected)
[2025-01-19 16:33] LABS: Bilirubin,Urine Negative (Negative); Blood, Urine Negative (Negative); Color,Urine YELLOW (Yellow); Glucose,Urine (UA) Negative (Negative); Ketones,Urine Negative (Negative); Leukocyte Esterase,Urine Negative (Negative); Nitrate,Urine Negative (Negative); PH,Urine 5.5 (5.0-8.5); Protein,Urine Negative (Negative); Specific Gravity, Urine 1.025 (1.005-1.030); Urobilinogen,Urine 0.2 EU/dl (0.2)
[2025-01-19 16:39] LABS: Appearance,Urine Clear (Clear)
[2025-01-19 16:59] LABS: Bacteria,Urine 2+ /lpf; Mucus,Urine 1+ /lpf
== END 2025-01-19 23:59 | disposition home or self-care (01) ==
LOC: LAB.DROPOF 16:23
PROVIDERS: PCP Nurse Practitioner Family; Visit Provider Nurse Practitioner Family
DX: R19.7 Diarrhea, unspecified (principal); R10.10 Upper abdominal pain, unspecified; R35.0 Frequency of micturition
CPT/HCPCS: 81001; 87086; 87506

== ENCOUNTER 2025-02-07 13:44 | Outpatient (CLI) | payer MEDICARE, OTHER, SELFPAY ==
--- OUTSIDE RECORDS SUMMARY | 2025-02-07 13:47 | XMS_ITS | Clinical Summary ---
Author Organization [facility] Address [address] [place] [address] Care Team Providers Care Sexton Helper Name Role Phone Raffaele Austin MD Primary Care Provider [phone] Allergies No known active allergies Medications EQ [...] on 07/11 and to obtain CBC in [facility] on 07/08 CAD (coronary artery disease) 06/30/2022 Overview (07/01/2022): Per medical chart review PMHx Recent STEMI (April 2022) with cardiac stents (unknown location) DC 17 years ago, unknown if stents present [...] (06/29/2022): Added automatically from request for surgery [id number] Aneurysm of infrarenal abdom inal aorta, unspecified whether ruptured 06/29/2022 Overview (07/01/2022): Presented to [facility] 06/29/22 as a transfer from [facility] r/t infrarenal AAA evaluation 06/29/22: s/p 1. 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) to steady your nerves or to get [...] Last Done Comments Y-Bone Density Scan 1955 [facility]-Medicare Annual Wellness (AWV) 1955 [facility]-Infant/Child/Adol SDOH Screenings [...] Screening 07/08/2023 07/08/2022 [facility]-Depression Screening 11/22/2023 11/21/2022 [facility]-XNHTE-16 Vaccine (3 - 2023- season) 2024 04/30/2021, 04/10/2021 [facility]-Influenza Vaccine (#1) 2025 [facility]-RSV Vaccine: 60+ Years o r [...] this topic Medical Devices Implanted Type Area Labor/Excavator Device Identifier Shelf Expiration Date Model / Serial / Lot Stent [employer] Chg Bifurc 25mm X 80mm X 16mm - [id number] Implanted:Qty: 1 on 06/29/2022 by Eli Hayes MD at [facility] [id number] 04/13/2023 [id number] / [id number] / [id number] Procedures Procedure Name Priority Date/Time Associated Diagnosis [...] PELVIS W RUNOFF ordered by ELI HAYES, [id number] CLINICAL INDICATION: Claudication or leg ischemia, prior [...] PELVIS W RUNOFF ordered by ELI FLOYD, [id number] CLINICAL INDICATION: Claudication or leg ischemia, prior [...] Antibody Negative Negative 06/29/2022 1:06 PM EST [facility] Blood Venous blood specimen / Unknown Venipuncture / Unknown 06/29/2022 11:10 AM EST 06/29/2022 11:57 AM EST Andrey Phelan MD LAB BLOOD ORDERABLES Final Re sult [facility] [address] [place] [address] from Last 3 Months or Most Recently Relevant to Health Maintenance Insurance [employer] [facility] MEDICAID AENA MEDICARE Advance Directives * Full Code (Latest Code Status on File) Date Activated Date Inactivated Comments 06/29/2022 3:28 PM 07/01/2022 5:13 PM Question Answer Comments Patient has decision-making capacity? Yes * Full Code Date Activated Date Inactivated Comments 06/29/2022 12:09 PM 06/29/2022 3:28 PM Question Answer Comments Patient has decision-making capacity? Yes Care Teams Sexton Helper Relationship Specialty Start Date End Date Raffaele Austin MD [address] [place] [address] [address] NATASHA Govea [id number] PCP - General 06/30/21
--- NOTE | 2025-02-07 14:00 | CT_ITS ---
FINAL REPORT TECHNIQUE: Noncontrast exam This study was performed with techniques to keep radiation doses as low as reasonably achievable, (ALARA). Individualized dose reduction techniques using automated exposure control or adjustment of mA and/or kV according to the patient's size were employed. CLINICAL HISTORY: Dizziness COMPARISON: None FINDINGS: CT HEAD: No abnormal density is seen. Ventricles are normal. There is no hemorrhage. No mass effect is seen. Bone windows show no evidence of fracture. 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 IMPRESSION: No acute findings Reviewed, Interpreted and Dictated by Thais Castellano MD Transcribed by Catherine Alston Authenticated and [facility]
== END 2025-02-07 23:59 | disposition home or self-care (01) ==
LOC: RAD 13:45
PROVIDERS: PCP Nurse Practitioner Family; Visit Provider Nurse Practitioner Family
DX: R42 Dizziness and giddiness (principal); R63.4 Abnormal weight loss
CPT/HCPCS: 70450